=== PATIENT | male | born 1940 | race Caucasian/White ===

== ENCOUNTER 2017-01-29 02:34 | Emergency (ER) | payer MEDICARE ==
[~2017-01-29] VITALS: Ht 182.9 cm; Wt 80.0 kg
[~2017-01-29 02:34] MED LIST: ASPI81TA82 PO; AZIT250T43 PO; ENAL10TA7 PO; LANSO15 PO; LEVO.1 PO; METO50TA PO; PRED20 PO; SPIRCAP INH; ZOCO40TA PO
[2017-01-29 02:36] VITALS: BP 150/86; PULSE 92; RESP 28; TEMP 98.2; O2SAT 98
[2017-01-29] MEDS ORDERED: METO25TA3 PO (02:48)
[2017-01-29] MEDS ORDERED: ZOCO40TA PO (02:48)
[2017-01-29] MEDS ORDERED: PREV15CA15 PO (02:48)
[2017-01-29] MEDS ORDERED: ASPI81CH CHEW (02:48)
[2017-01-29] MEDS ORDERED: ENAL10TA7 (02:48)
[2017-01-29] MEDS ORDERED: LEVO.1 PO (02:48)
[2017-01-29 02:50] VITALS: O2SAT 98
--- NOTE | 2017-01-29 02:58 | PD ---
HPI Chief Complaint: Respiratory Distress Time Seen by Provider: 02:45 Travel History International Travel<30 days: No Contact w/Intl Traveler<30days: No Traveled to known affect area: No History of Present Illness HPI The patient is a 76 year old male who presents to the [facility] emergency department with a history of shortness of breath that became worse on Saturday. The patient reports that after the rain on Saturday morning he noticed he was developing increasing wheezing. The patient has a known history of COPD. The patient denies any recent smoking. The patient reports that he occasionally has a cough productive of white sputum. He denies having any increased productivity to his cough. He denies having any fevers or chills. He does report having a clear rhinorrhea. The patient reports that he awoke from sound sleep at 1:30 AM with wheezing that he could not really with an albuterol nebulizer treatment. Ambulance services were called. The patient was noted to be tachypneic with wheezing and an O2 saturation on room air of 86%. Prior to arrival, the patient was given Solu-Medrol 125 mg IV, albuterol nebulizer treatments 3. The patient on arrival reports feeling improved. He denies having any chest pain. He reports that he does have chest tightness with trying to take a deep breath. The patient denies having any known history of congestive heart failure, DVT, or PE. The patient denies having any new or worsening lower extremity edema. On review of systems, the patient denies any recent increased congestion, neck pain, abdominal pain, vomiting, diarrhea, urinary symptoms, or neurologic symptoms. [facility] Past Medical History Narrative Medical The patient's past medical history is significant for COPD, coronary artery disease status post myocardial infarction 2, history of hyperlipidemia, hypertension, arthritis, hypothyroid disorder Arthritis: Yes Asthma: No Autoimmune Disease: No Blood Disorders: No Heart Rhythm Problems: No Cancer: No Cardiac Catheterization: Yes Cardiovascular Problems: Yes High Cholesterol: Yes Chest Pain: Yes Congestive Heart Failure: No COPD: Yes Cerebrovascular Accident: No Diabetes: No Diminished Hearing: No GERD: No Glaucoma: No Genitourinary: No Headaches: No Hepatitis: No Hiatal Hernia: No Hypertension: Yes Kidney Stones: No Musculoskeletal: No Neurologic: No Psychiatric: No Reproductive: No Respiratory: Yes (copd ) Myocardial Infarction: Yes (X2) Renal Failure: No Seizures: No Sleep Apnea: No Thyroid Disease: Yes Ulcer: No Past Surgical History Narrative Surgical The patient's past surgical history is significant for cardiac catheterization with stent placement 4. Abdominal Surgery: No AICD: No Cardiac Surgery: No Coronary Artery Bypass Graft: No Coronary Stent: Yes (X4) Ear Surgery: No Endocrine Surgery: No Eye Surgery: No Genitourinary Surgery: No Gynecologic Surgery: No Oral Surgery: No Pacemaker: No Thoracic Surgery: No Social History Alcohol Use: No Tobacco Use: No Substance Use: No Allergies-Medications (Allergen,Severity, Reaction): Coded Allergies: Librium (Verified Allergy, Severe, 01/29/17) Penicillin (Verified Allergy, Severe, 01/29/17) Robaxin (Verified Allergy, Severe, 01/29/17) Reported Meds & Prescriptions Reported Meds & Active Scripts Active Reported Enalapril-Hydrochorothiazide (Enalapril-Hydrochlorothiazide) 10-25 Mg Tab Metoprolol Tartrate 25 Mg Tab 25 Mg PO BID Synthroid (Levothyroxine Sodium) 100 Mcg Tab 100 Mcg PO DAILY Prevacid (Lansoprazole) 15 Mg Capdr 15 Mg PO HS Aspirin 81 Mg Chew 81 Mg CHEW DAILY Review of Systems Except as stated in HPI: all other systems reviewed are Neg General / Constitutional: No: Fever Eyes: No: Visual changes HENT: No: Headaches Cardiovascular: Positive: Chest Pain or Discomfort (chest tightness), Dyspnea on exertion Respiratory: Positive: Cough, Shortness of Breath, Wheezing Gastrointestinal: No: Nausea, Vomiting, Diarrhea, Abdominal Pain Genitourinary: No: Dysuria Musculoskeletal: No: Pain Skin: No Rash Neurologic: No: Weakness Psychiatric: No: Depression Endocrine: No: Polydipsia Hematologic/Lymphatic: No: Easy Bruising Physical Exam Narrative General: The patient is a well-developed well-nourished male in no acute distress. Head and Neck exam: Head is normocephalic atraumatic. Eyes: EOMI, pupils are equal round and reactive to light. Nose: Midline septum with pink mucous membranes Mouth: Dentition unremarkable. Moist mucus membranes. Posterior oropharynx is not erythematous. No tonsillar hypertrophy. Uvula midline. Airway patent. Neck: No palpable lymphadenopathy. No nuchal rigidity. No thyromegaly. Cardiovascular: Regular rate and rhythm without murmurs, gallops, or rubs. No pulse deficit to the extremities on simultaneous auscultation and palpation of his radial artery. Lungs: Soft expiratory wheezes are audible in bilateral lung ellis, no rhonchi, no crackles. No conversational dyspnea. No tripoding. No accessory muscle use. No paroxysmal abdominal breathing. Abdomen: Soft, without tenderness to palpation in all 4 quadrants of the abdomen. No guarding, rebound, or rigidity. Normal bowel sounds are audible. No tenderness on palpation of McBurney's point. Extremities: No clubbing, cyanosis, or edema. 2+ pulses in all 4 extremities. Calf tenderness on palpation. Back: No costovertebral angle tenderness to palpation. Neurologic Exam: Grossly nonfocal. Skin Exam: No rash noted. Intact skin that is warm and dry. Data Data Last Documented VS Vital Signs Date Time Temp Pulse Resp B/P Pulse Ox O2 Delivery O2 Flow Rate FiO2 01/29/17 02:50 98 Nasal Cannula 3.00 01/29/17 02:41 22 01/29/17 02:36 98.2 92 150/86 Orders Complete Blood Count With Diff (01/29/17 02:46) Comprehensive Metabolic Panel (01/29/17 02:46) B-Type Natriuretic Peptide (01/29/17 02:46) Magnesium (Mg) (01/29/17 02:46) Iv Access Insert/Monitor (01/29/17 02:46) Electrocardiogram (01/29/17 02:46) Ecg Monitoring (01/29/17 02:46) Oximetry (01/29/17 02:46) Oxygen Administration (01/29/17 02:46) Chest, Single Ap (01/29/17 02:46) Sodium Chloride 0.9% Flush (Ns Flush) (01/29/17 03:00) Albuterol-Ipratropium Neb (Duoneb Neb) (01/29/17 03:00) Labs Laboratory Tests Test 01/29/17 02:45 White Blood Count 9.6 TH/MM3 Red Blood Count 4.91 MIL/MM3 Hemoglobin 14.9 GM/DL Hematocrit 42.6 % Mean Corpuscular Volume 86.7 FL Mean Corpuscular Hemoglobin 30.4 PG Mean Corpuscular Hemoglobin 35.0 % Concent Red Cell Distribution Width 13.0 % Platelet Count 226 TH/MM3 Mean Platelet Volume 8.3 FL Neutrophils (%) (Auto) 64.5 % Lymphocytes (%) (Auto) 17.0 % Monocytes (%) (Auto) 9.2 % Eosinophils (%) (Auto) 8.0 % Basophils (%) (Auto) 1.3 % Neutrophils # (Auto) 6.2 TH/MM3 Lymphocytes # (Auto) 1.6 TH/MM3 Monocytes # (Auto) 0.9 TH/MM3 Eosinophils # (Auto) 0.8 TH/MM3 Basophils # (Auto) 0.1 TH/MM3 CBC Comment DIFF FINAL Differential Comment Sodium Level 135 MEQ/L Potassium Level 4.3 MEQ/L Chloride Level 101 MEQ/L Carbon Dioxide Level 27.5 MEQ/L Anion Gap 7 MEQ/L Blood Urea Nitrogen 10 MG/DL Creatinine 1.04 MG/DL Estimat Glomerular Filtration 70 ML/MIN Rate Random Glucose 101 MG/DL Calcium Level 9.0 MG/DL Magnesium Level 2.1 MG/DL Total Bilirubin 0.7 MG/DL Aspartate Amino Transf 27 U/L (AST/SGOT) Alanine Aminotransferase 22 U/L (ALT/SGPT) Alkaline Phosphatase 73 U/L B-Type Natriuretic Peptide 58 PG/ML Total Protein 7.0 GM/DL Albumin 3.5 GM/DL MDM Medical Decision Making Medical Screen Exam Complete: Yes Emergency Medical Condition: Yes Medical Record Reviewed: Yes Interpretation(s) Last Impressions Chest X-Ray 01/29/17 0246 Signed Impressions: Service Date/Time: Sunday, January 29, 2017 02:57 - CONCLUSION: No acute disease. Burt Aguilar MD Differential Diagnosis COPD exacerbation, versus pneumonia, versus new-onset congestive heart failure, versus pneumothorax. Narrative Course During the course of the patients emergency department visit, the patients history, examination, and differential diagnosis were reviewed with the patient. The patient had IV access obtained and blood work sent for analysis. The patient was placed on a custom marine canvas fabricator with oximetry and blood pressure monitoring. An EKG was done on arrival. The patient's EKG shows a sinus tachycardia rate of 102, no acute ST segment elevation or depression, T waves are inverted in V1. QRS duration is 90 ms, QTC 403 ms. The patient was initially provided a DuoNeb 1. The patients laboratory studies were reviewed and remarkable for a white count of 9.6, hemoglobin 14.9, platelets 226 with 9.2 monocytes, eosinophils 8, CMP is remarkable for sodium of 135, GFR 70, BNP is 58. Radiology studies were reviewed and remarkable for a chest x-ray that shows no acute abnormality. The patient on reexamination has had resolution of his wheezing. The patient's O2 saturation on room air is 96%. The patient will be discharged home. The patient is resting comfortably and feels better, is alert and in no distress. The patients results and examination findings were discussed with the patient. The repeat examination is unremarkable and benign. The history, exam, diagnostic testing, and current condition do not suggest any significant pathology to warrant further testing, continued ED treatment, admission, or surgical evaluation at this point. The vital signs have been stable. The patient does not have uncontrollable pain, intractable vomiting, or other significant symptoms. The patient's condition is stable and appropriate for discharge. The patient will pursue further outpatient evaluation with a primary care physician or other designated or consulting physician as indicated in the discharge instructions. The patient expressed understanding and was agreeable with this plan. Diagnosis Primary Impression: COPD exacerbation Additional Impression: Bronchitis Referrals: Primary Care Physician 2 days Patient Instructions: COPD (Chronic Obstructive Pulmonary Disease) (ED), General Instructions Med/Other Pt SpecificInfo: Prescription(s) given Scripts Doxycycline Hyclate 100 Mg [id number] Mg PO BID #20 CAP Ref 0 Prov:Kathya Souza MD 01/29/17 Ipratropium-Albuterol Neb (Duoneb)0.5-2.5 Mg/3 Ml Neb1 Nebule INH Q6HR NEB PRN ( WHEEZING) #1 BOX Ref 0 Prov:Kathya Souza MD 01/29/17 Methylprednisolone Dosepak (Medrol Dosepak)4 Mg Dspk4 Mg PO DIRECTED #1 DSPK Ref 0 Per Pharmacist direction Prov:Kathya Souza MD 01/29/17 Disposition: 01 DISCHARGE HOME Condition: Stable Kathya Souza MD January 29, 2017 02:58
[2017-01-29] MEDS ORDERED: RESP: ALBUTEROL 2.5 MG/IPRATROPIUM 0.5 MG NEB (SCH) INH ONE (03:00)
[2017-01-29] MEDS ORDERED: SODIUM CHLORIDE 0.9% FLUSH 10 ML FLUSH IVF PRN (03:00)
[2017-01-29 03:07] LABS: AUTOMATED NEUTROPHIL # 6.2 TH/MM3 (1.8-7.7); BASOPHIL # 0.1 TH/MM3 (0-0.2); BASOPHIL % 1.3 % (0.0-2.0); EOSINOPHIL # 0.8 TH/MM3 (0-0.4); HEMATOCRIT 42.6 % (39.0-51.0); HEMO FLAGS DIFF FINAL; LYMPHOCYTE # 1.6 TH/MM3 (1.0-4.8); MEAN CELL VOLUME 86.7 FL (80.0-100.0); MEAN CORPUSCULAR HEMOGLOBIN 30.4 PG (27.0-34.0); MONO % 9.2 % (0.0-8.0); NEUT % 64.5 % (16.0-70.0); PLATELET COUNT 226 TH/MM3 (150-450); RED BLOOD COUNT 4.91 MIL/MM3 (4.50-5.90); WHITE BLOOD COUNT 9.6 TH/MM3 (4.0-11.0)
--- NOTE | 2017-01-29 03:09 | RADRPT ---
EXAM DATE/TIME: 01/29/2017 02:57 [facility] COMPARISON: CHEST SINGLE AP, February 16, 2015, 0:40. INDICATIONS : Shortness of breath. MEDICAL HISTORY : Chronic obstructive pulmonary disease. Myocardial infarction. SURGICAL HISTORY : Coronary artery stent. Cardiac catheterization. ENCOUNTER: Initial ACUITY: 1 day PAIN SCORE: 0/10 LOCATION: Bilateral chest FINDINGS: A single view of the chest demonstrates the lungs to be symmetrically hyperinflated without evidence of mass, infiltrate or effusion. The cardiomediastinal contours are unremarkable. Osseous structure s are intact. CONCLUSION: No acute disease. Burt Aguilar MD on January 29, 2017 at 3:07 Board Certified Radiologist. This report was verified electronically.
[2017-01-29 03:32] LABS: ALKALINE PHOSPHATASE 73 U/L (45-117); TOTAL BILIRUBIN ADULT 0.7 MG/DL (0.2-1.0)
[2017-01-29 03:36] LABS: ALT (GPT) 22 U/L (12-78); ANION GAP 7 MEQ/L (5-15); AST (GOT) 27 U/L (15-37); BICARBONATE 27.5 MEQ/L (21.0-32.0); BLOOD UREA NITROGEN 10 MG/DL (7-18); CHLORIDE 101 MEQ/L (98-107); GLOMERULAR FILTRATION RATE 70 ML/MIN (>89); MAGNESIUM 2.1 MG/DL (1.5-2.5); SODIUM (NA) 135 MEQ/L (136-145)
[2017-01-29 03:37] LABS: POTASSIUM 4.3 MEQ/L (3.5-5.1)
[2017-01-29] MEDS ORDERED: DOXY100C PO (04:05)
[2017-01-29] MEDS ORDERED: MEDR4PAK PO (04:05)
[2017-01-29] MEDS ORDERED: IPRASOL INH (04:05)
[2017-01-29 04:11] VITALS: O2SAT 95
--- NOTE | 2017-01-29 15:55 | EKG ---
Date Performed: 01/29/2017 Time Performed: 02:39:19 PTAGE: 76 years EKG: SINUS TACHYCARDIA POSSIBLE LEFT ATRIAL ENLARGEMENT ABNORMAL RHYTHM ECG Compared to the PREVIOUS TRACING sinus rate has increased PREVIOUS TRACIN02/16/2015 00.14 DOCTOR: Fer Alejandro Interpretating Date/Time 01/29/2017 15:54:02
== END 2017-01-29 04:53 | disposition home or self-care (01) ==
LOC: NEPE 02:34
DX: J44.1 Chronic obstructive pulmonary disease with (acute) exacerbation (principal); R94.31 Abnormal electrocardiogram [ECG] [EKG]; I25.10 Atherosclerotic heart disease of native coronary artery without angina pectoris; I10 Essential (primary) hypertension; I25.2 Old myocardial infarction; Z95.5 Presence of coronary angioplasty implant and graft; J40 Bronchitis, not specified as acute or chronic
CPT/HCPCS: 71010; 80053; 83735; 83880; 85025; 93005; 94664

== ENCOUNTER 2017-09-26 06:34 | Emergency (ER) | payer MEDICARE ==
[~2017-09-26] VITALS: Ht 177.8 cm; Wt 80.0 kg
[~2017-09-26 06:34] MED LIST changes: +ASPI-516 CHEW; -ASPI81TA82 PO; -AZIT250T43 PO; +DOXY100C PO; +ENAL10TA7; -ENAL10TA7 PO; +IPRASOL INH; -LANSO15 PO; +MEDR4PAK PO; +METO25TA3 PO; -METO50TA PO; -PRED20 PO; +PREV15CA20 PO; -SPIRCAP INH; -ZOCO40TA PO
[2017-09-26 06:39] VITALS: BP 139/69; PULSE 84; RESP 24; TEMP 98.4; O2SAT 100
[2017-09-26] MEDS ORDERED: SODIUM CHLORIDE 0.9% FLUSH 10 ML FLUSH IVF PRN (06:45)
[2017-09-26 06:46] VITALS: RESP 22
[2017-09-26] MEDS: RESP: ALBUTEROL 2.5 MG/IPRATROPIUM 0.5 MG NEB (SCH) INH (06:46)
[2017-09-26 06:55] VITALS: BP 119/65; PULSE 86; RESP 20; TEMP 98; O2SAT 96
--- NOTE | 2017-09-26 06:56 | PD ---
HPI . Acute respiratory distress Chief Complaint: Respiratory Distress Time Seen by Provider: 06:39 Travel History International Travel<30 days: No Contact w/Intl Traveler<30days: No Traveled to known affect area: No History of Present Illness HPI 77-year-old male with extensive past medical history presents via EMS called secondary to acute shortness of breath this morning. Patient received 2 albuterol Atrovent nebulized treatments en route & Medrol 125 mg IV push. Patient has had a significant cough that is nonproductive, however patient states he is having difficulty expectorating sputum. Patient denies any chest pain, or quantified fever. Patient is having difficulty with further history secondary to respiratory distress PFSH Past Medical History Narrative Medical Past medical history reviewed Arthritis: Yes Asthma: No Autoimmune Disease: No Blood Disorders: No Heart Rhythm Problems: No Cancer: No Cardiac Catheterization: Yes Cardiovascular Problems: Yes High Cholesterol: Yes Chest Pain: Yes Congestive Heart Failure: No COPD: Yes Cerebrovascular Accident: No Diabetes: No Diminished Hearing: No GERD: No Glaucoma: No Genitourinary: No Headaches: No Hepatitis: No Hiatal Hernia: No Hypertension: Yes Kidney Stones: No Musculoskeletal: No Neurologic: No Psychiatric: No Reproductive: No Respiratory: Yes Immunizations Current: Yes Myocardial Infarction: Yes (X2) Renal Failure: No Seizures: No Sleep Apnea: No Thyroid Disease: Yes Ulcer: No Tetanus Vaccination: < 5 Years Influenza Vaccination: Yes Past Surgical History Abdominal Surgery: No AICD: No Cardiac Surgery: No Coronary Artery Bypass Graft: No Coronary Stent: Yes (X4) Ear Surgery: No Endocrine Surgery: No Eye Surgery: No Genitourinary Surgery: No Gynecologic Surgery: No Oral Surgery: No Pacemaker: No Thoracic Surgery: No Social History Alcohol Use: No Tobacco Use: No Substance Use: No Allergies-Medications (Allergen,Severity, Reaction): Coded Allergies: chlordiazepoxide (Unverified Allergy, Severe, 09/26/17) methocarbamol (Unverified Allergy, Severe, 09/26/17) penicillin G (Unverified Allergy, Severe, 09/26/17) Reported Meds & Prescriptions Reported Meds & Active Scripts Active Duoneb (Ipratropium-Albuterol Neb) 0.5-2.5 Mg/3 Ml Neb 1 Nebule INH Q6HR NEB PRN Reported Enalapril-Hydrochorothiazide (Enalapril-Hydrochlorothiazide) 10-25 Mg Tab Metoprolol Tartrate 25 Mg Tab 25 Mg PO BID Synthroid (Levothyroxine Sodium) 100 Mcg Tab 100 Mcg PO DAILY Prevacid (Lansoprazole) 15 Mg Capdr 15 Mg PO HS Aspirin 81 Mg Chew 81 Mg CHEW DAILY Narrative Medication Allergies and medications reviewed Review of Systems Except as stated in HPI: all other systems reviewed are Neg General / Constitutional: No: Fever Eyes: No: Visual changes HENT: No: Headaches Cardiovascular: No: Chest Pain or Discomfort Respiratory: Positive: Cough, Shortness of Breath, Wheezing, No: Sneezing, Orthopnea, Hemoptysis, Stridor, Night Sweats, Pleuritic Pain Gastrointestinal: No: Abdominal Pain Genitourinary: No: Dysuria Musculoskeletal: No: Pain Skin: No Rash Neurologic: No: Weakness Psychiatric: No: Depression Endocrine: No: Polydipsia Hematologic/Lymphatic: No: Easy Bruising Physical Exam Narrative GENERAL: Awake and alert, in moderate respiratory distress SKIN: Warm and dry. Slightly sallow no diaphoresis cyanosis or pallor HEAD: Atraumatic. Normocephalic. EYES: Pupils equal and round. No scleral icterus. No injection or drainage. ENT: No nasal bleeding or discharge. Mucous membranes pink and moist. NECK: Trachea midline. No JVD. Supple full range of motion no stridor CARDIOVASCULAR: Regular rate and rhythm. S1-S2 no murmurs rubs gallops RESPIRATORY: Very poor air entry, prolonged respiratory phase equal bilateral. Rhonchi audible with forced exhalation/cough only. GASTROINTESTINAL: Abdomen soft, non-tender, nondistended. Hepatic and splenic margins not palpable. MUSCULOSKELETAL: Extremities without clubbing, cyanosis, or edema. No obvious deformities. NEUROLOGICAL: Awake and alert. No obvious cranial nerve deficits. Motor grossly within normal limits. Five out of 5 muscle strength in the arms and legs. Normal speech. PSYCHIATRIC: Appropriate mood and affect; insight and judgment normal. Data Data Last Documented VS Vital Signs Date Time Temp Pulse Resp B/P (MAP) Pulse Ox O2 Delivery O2 Flow Rate FiO2 09/26/17 06:46 22 09/26/17 06:45 98 Nasal Cannula 4.00 09/26/17 06:39 98.4 84 139/69 (92) Orders Orders Complete Blood Count With Diff (09/26/17 06:39) Comprehensive Metabolic Panel (09/26/17 06:39) B-Type Natriuretic Peptide (09/26/17 06:39) D-Dimer (09/26/17 06:39) Act Partial Throm Time (Ptt) (09/26/17 06:39) Prothrombin Time / Inr (Pt) (09/26/17 06:39) Magnesium (Mg) (09/26/17 06:39) Ckmb (Isoenzyme) Profile (09/26/17 06:39) Troponin I (09/26/17 06:39) Urinalysis - C+S If Indicated (09/26/17 06:39) Influenzae A/B Antigen (09/26/17 06:39) Iv Access Insert/Monitor (09/26/17 06:39) Electrocardiogram (09/26/17 06:39) Ecg Monitoring (09/26/17 06:39) Oximetry (09/26/17 06:39) Oxygen Administration (09/26/17 06:39) Chest, Single Ap (09/26/17 06:39) Sodium Chloride 0.9% Flush (Ns Flush) (09/26/17 06:45) Albuterol-Ipratropium Neb (Duoneb Neb) (09/26/17 06:45) MDM Medical Decision Making Medical Screen Exam Complete: Yes Emergency Medical Condition: Yes Medical Record Reviewed: Yes Differential Diagnosis COPD exacerbation, acute bronchitis, pneumonia Narrative Course All laboratory examinations, chest x-ray, EKG pending. Patient signed out to oncoming ED attending. Patient currently being administered his first DuoNeb treatment in the ED. Diagnosis Primary Impression: COPD exacerbation Additional Impression: Bronchitis Chano Mtz MD Sep 26, 2017 06:56
[2017-09-26 07:03] LABS: AUTOMATED NEUTROPHIL # 5.4 TH/MM3 (1.8-7.7); BASOPHIL # 0.1 TH/MM3 (0-0.2); BASOPHIL % 1.4 % (0.0-2.0); EOSINOPHIL # 0.6 TH/MM3 (0-0.4); EOSINOPHIL % 7.1 % (0.0-4.0); HEMATOCRIT 40.7 % (39.0-51.0); HEMOGLOBIN 14.5 GM/DL (13.0-17.0); LYMPH % 18.1 % (9.0-44.0); LYMPHOCYTE # 1.5 TH/MM3 (1.0-4.8); MEAN CORPUSCULAR HEMOGLOBIN 30.9 PG (27.0-34.0); MEAN CORPUSCULAR HGB CONC 35.6 % (32.0-36.0); MEAN PLATELET VOLUME 8.9 FL (7.0-11.0); MONO % 7.9 % (0.0-8.0); MONOCYTE # 0.6 TH/MM3 (0-0.9); NEUT % 65.5 % (16.0-70.0); PLATELET COUNT 253 TH/MM3 (150-450); RED BLOOD COUNT 4.68 MIL/MM3 (4.50-5.90); RED CELL DISTRIBUTION WIDTH 13.2 % (11.6-17.2); WHITE BLOOD COUNT 8.2 TH/MM3 (4.0-11.0)
--- NOTE | 2017-09-26 07:08 | RADRPT ---
EXAM DATE/TIME: 09/26/2017 06:45 [facility] COMPARISON: CHEST SINGLE AP, January 29, 2017, 2:57. INDICATIONS : Shortness of breath for one day MEDICAL HISTORY : Chronic obstructive pulmonary disease. Myocardial infarction. SURGICAL HISTORY : Coronary artery stent. Cardiac catheterization. ENCOUNTER: Initial ACUITY: 1 day PAIN SCORE: 0/10 LOCATION: Bilateral chest FINDINGS: Portable AP view of the chest demonstrates a normal-sized cardiac silhouette. Lungs are hyperexpanded . There are linear opacities at the left lung base. No pleural effusion, airspace consolidation, or p neumothorax is visualized. The bones and soft tissues demonstrate no acute finding. CONCLUSION: 1. No acute cardiopulmonary abnormality is identified. 2. Background lung changes are suggestive of obstructive airways disease. There is stable linear scar at the left lung base. Macario Bauer MD on September 26, 2017 at 7:06 Board Certified Radiologist. This report was verified electronically.
[2017-09-26 08:09] LABS: ALBUMIN 3.2 GM/DL (3.4-5.0); ALT (GPT) 19 U/L (12-78); AST (GOT) 20 U/L (15-37); BICARBONATE 27.2 MEQ/L (21.0-32.0); BLOOD UREA NITROGEN 13 MG/DL (7-18); CALCIUM 8.3 MG/DL (8.5-10.1); CHLORIDE 100 MEQ/L (98-107); CREATININE 0.95 MG/DL (0.60-1.30); GLOMERULAR FILTRATION RATE 77 ML/MIN (>89); GLUCOSE,RANDOM 117 MG/DL (74-106); MAGNESIUM 2.2 MG/DL (1.5-2.5); SODIUM (NA) 134 MEQ/L (136-145)
[2017-09-26 08:12] LABS: ALKALINE PHOSPHATASE 74 U/L (45-117); TOTAL BILIRUBIN ADULT 0.7 MG/DL (0.2-1.0); TOTAL PROTEIN 7.1 GM/DL (6.4-8.2); TROPONIN I 0.09 NG/ML (0.02-0.05)
[2017-09-26] MEDS ORDERED: PRED20 PO (08:57)
--- NOTE | 2017-09-26 09:03 | PD ---
Data Data Last Documented VS Vital Signs Date Time Temp Pulse Resp B/P (MAP) Pulse Ox O2 Delivery O2 Flow Rate FiO2 09/26/17 06:55 98.0 86 20 119/65 (83) 96 Nasal Cannula 4.00 Orders Orders Complete Blood Count With Diff (09/26/17 06:39) Comprehensive Metabolic Panel (09/26/17 06:39) B-Type Natriuretic Peptide (09/26/17 06:39) D-Dimer (09/26/17 06:39) Act Partial Throm Time (Ptt) (09/26/17 06:39) Prothrombin Time / Inr (Pt) (09/26/17 06:39) Magnesium (Mg) (09/26/17 06:39) Ckmb (Isoenzyme) Profile (09/26/17 06:39) Troponin I (09/26/17 06:39) Influenzae A/B Antigen (09/26/17 06:39) Iv Access Insert/Monitor (09/26/17 06:39) Electrocardiogram (09/26/17 06:39) Ecg Monitoring (09/26/17 06:39) Oximetry (09/26/17 06:39) Oxygen Administration (09/26/17 06:39) Chest, Single Ap (09/26/17 06:39) Sodium Chloride 0.9% Flush (Ns Flush) (09/26/17 06:45) Albuterol-Ipratropium Neb (Duoneb Neb) (09/26/17 06:45) CKMB (09/26/17 07:30) CKMB% (09/26/17 07:30) Labs Laboratory Tests Test 09/26/17 06:45 09/26/17 07:30 White Blood Count 8.2 TH/MM3 Red Blood Count 4.68 MIL/MM3 Hemoglobin 14.5 GM/DL Hematocrit 40.7 % Mean Corpuscular Volume 87.0 FL Mean Corpuscular Hemoglobin 30.9 PG Mean Corpuscular Hemoglobin Concent 35.6 % Red Cell Distribution Width 13.2 % Platelet Count 253 TH/MM3 Mean Platelet Volume 8.9 FL Neutrophils (%) (Auto) 65.5 % Lymphocytes (%) (Auto) 18.1 % Monocytes (%) (Auto) 7.9 % Eosinophils (%) (Auto) 7.1 % Basophils (%) (Auto) 1.4 % Neutrophils # (Auto) 5.4 TH/MM3 Lymphocytes # (Auto) 1.5 TH/MM3 Monocytes # (Auto) 0.6 TH/MM3 Eosinophils # (Auto) 0.6 TH/MM3 Basophils # (Auto) 0.1 TH/MM3 CBC Comment DIFF FINAL Differential Comment B-Type Natriuretic Peptide 36 PG/ML Blood Urea Nitrogen 13 MG/DL Creatinine 0.95 MG/DL Random Glucose 117 MG/DL Total Protein 7.1 GM/DL Albumin 3.2 GM/DL Calcium Level 8.3 MG/DL Magnesium Level 2.2 MG/DL Alkaline Phosphatase 74 U/L Aspartate Amino Transf (AST/SGOT) 20 U/L Alanine Aminotransferase (ALT/SGPT) 19 U/L Total Bilirubin 0.7 MG/DL Sodium Level 134 MEQ/L Potassium Level 4.4 MEQ/L Chloride Level 100 MEQ/L Carbon Dioxide Level 27.2 MEQ/L Anion Gap 7 MEQ/L Estimat Glomerular Filtration Rate 77 ML/MIN Total Creatine Kinase 161 U/L Creatine Kinase MB 3.9 NG/ML Troponin I 0.09 NG/ML [facility] Supervised Visit with STEVEN: No Narrative Course This case is checked out to me by Dr. Benita Saenz at 7 AM. I reviewed the entirety of the workup. I reevaluated the patient. At this point he has some diminished breath sounds but no active wheezing. He feels much much better. Saturations are 99% on room air His chest x-ray is negative for consolidation or pneumothorax I reviewed his labs which are fairly nonspecific With troponin I of 0.09 does not represent ACS. He has not had any chest pain. I have no Clinical suspicion of PE. I've canceled the d-dimer. I don't feel it is indicated. I wrote him 5 days of prednisone He has a nebulizer to use at home Diagnosis Primary Impression: COPD exacerbation Additional Impression: Bronchitis Additional Instruction: The patient was advised to follow up with their physician and return if they worsen. Med/Other Pt SpecificInfo: Prescription(s) given Scripts Prednisone (Prednisone) 20 Mg Tab 40 MG PO DAILY, #10 TAB 0 Refills Take 40 mg (2 tablets) daily for 5 days Prov: Jaden Matias MD 09/26/17 Disposition: DISCHARGE HOME Condition: Stable Jaden Matias MD Sep 26, 2017 09:03
[2017-09-26 09:24] VITALS: BP 129/71; PULSE 80; RESP 16; O2SAT 96
--- NOTE | 2017-09-26 20:26 | EKG ---
Date Performed: 09/26/2017 Time Performed: 06:59:07 PTAGE: 77 years EKG: Sinus rhythm NORMAL ECG NO SIGNIFICANT CHANGE SINCE PRIOR TRACING PREVIOUS TRACING : 01/29/2017 02.39 DOCTOR: Emerita Payan Interpretating Date/Time 09/26/2017 20:26:06
== END 2017-09-26 09:26 | disposition home or self-care (01) ==
LOC: NEPC 06:34
DX: J44.1 Chronic obstructive pulmonary disease with (acute) exacerbation (principal); E78.00 Pure hypercholesterolemia, unspecified; I10 Essential (primary) hypertension; I25.2 Old myocardial infarction; E07.9 Disorder of thyroid, unspecified; M19.90 Unspecified osteoarthritis, unspecified site; Z95.5 Presence of coronary angioplasty implant and graft
CPT/HCPCS: 71045; 80053; 82550; 82552; 83735; 83880; 84484; 85025; 87804; 93005; 94640; 94664; 99285

== ENCOUNTER 2018-02-23 13:56 | Observation (INO) | payer MEDICARE ==
[2018-02-23] VITALS (9 sets, daily range): BP systolic 122–168; BP diastolic 66–85; PULSE 72–109; RESP 17–20; TEMP 97.5–98.7; O2SAT 96–99
[~2018-02-23] VITALS: Ht 180.3 cm; Wt 67.0 kg
[~2018-02-23 13:56] MED LIST changes: -DOXY100C PO; -MEDR4PAK PO; +PRED20 PO
[2018-02-23] MEDS ORDERED: SODIUM CHLORIDE 0.9% FLUSH 10 ML FLUSH IVF PRN (14:15)
[2018-02-23] MEDS: RESP: ALBUTEROL 2.5 MG/IPRATROPIUM 0.5 MG NEB (SCH) INH ×4 (14:28→23:17)
--- NOTE | 2018-02-23 14:32 | RADRPT ---
EXAM DATE: 02/23/2018 2:26 PM EDT AGE/SEX: 77 years / Male INDICATIONS: Short of breath, wheezing CLINICAL DATA: This is the patient's initial encounter. Patient reports that signs and symptoms have been present for 1 month and indicates a pain score of 0/10. MEDICAL/SURGICAL HISTORY: Cardiovascular disease. Coronary artery stent. COMPARISON: [facility], CHEST SINGLE AP, 09/26/2017. . FINDINGS: A single AP view of the chest demonstrates the lungs to be symmetrically aerated without evidence of mass, infiltrate or effusion. The cardiomediastinal contours are unremarkable. Osseous structures a re intact. CONCLUSION: No active disease. Mild hyperinflation. Electronically signed by: Ministerio Dobbs MD 02/23/2018 2:31 PM EDT
--- NOTE | 2018-02-23 14:54 | PD ---
HPI Chief Complaint: Respiratory Distress Time Seen by Provider: 14:00 Travel History International Travel<30 days: No Contact w/Intl Traveler<30days: No Traveled to known affect area: No History of Present Illness HPI 77-year-old male the presents to the ED for evaluation of shortness of breath. Patient has a history of COPD and has been here for exacerbations in the past. Per patient his symptoms have been ongoing for about a month now. He came by ambulance for evaluation of this. Per patient he does not use oxygen at home has been using his inhalers. Per patient he supposed to be in a chronic indication for his COPD called Symbicort but he has not had it yet. He has not seen his doctor for this. Per patient every time he complains of shortness of breath a tell him that is related to his COPD. He does have a history of ACS. He was given Solu-Medrol and DuoNeb on the way here with some improvement but minimal per patient. Per patient he is ambulating from small distances he gets severely short of breath. Per patient this is not unusual for him. He does not smoke for 7 years. He follows with a food equipment service technician through the [facility]. He denies any chest pain currently but states that he does get chest pain whenever he gets the shortness of breath. He states that he takes blood thinners. Denies any injury or trauma. No recent travel. PFSH Past Medical History Hx Anticoagulant Therapy: Yes Arthritis: Yes Asthma: No Autoimmune Disease: No Blood Disorders: No Heart Rhythm Problems: No Cancer: No Cardiac Catheterization: Yes Cardiovascular Problems: Yes (OH X 2) High Cholesterol: Yes Chest Pain: Yes Congestive Heart Failure: No COPD: Yes Cerebrovascular Accident: No Diabetes: No Diminished Hearing: No GERD: No Glaucoma: No Genitourinary: No Headaches: No Hepatitis: No Hiatal Hernia: No Hypertension: Yes Kidney Stones: No Musculoskeletal: No Neurologic: No Psychiatric: No Reproductive: No Respiratory: Yes (COPD) Immunizations Current: Yes Myocardial Infarction: Yes (X2) Renal Failure: No Seizures: No Sleep Apnea: No Thyroid Disease: Yes Ulcer: No Tetanus Vaccination: < 5 Years Influenza Vaccination: Yes ?: Not Past Surgical History Abdominal Surgery: No AICD: No Cardiac Surgery: No Coronary Artery Bypass Graft: No Coronary Stent: Yes (X4) Ear Surgery: No Endocrine Surgery: No Eye Surgery: No Genitourinary Surgery: No Gynecologic Surgery: No Oral Surgery: No Pacemaker: No Thoracic Surgery: No Social History Alcohol Use: No Tobacco Use: No Substance Use: No Allergies-Medications (Allergen,Severity, Reaction): Coded Allergies: chlordiazepoxide (Unverified Allergy, Severe, 09/26/17) methocarbamol (Unverified Allergy, Severe, 09/26/17) penicillin G (Unverified Allergy, Severe, 09/26/17) Reported Meds & Prescriptions Reported Meds & Active Scripts Active Prednisone 20 Mg Tab 40 Mg PO DAILY Take 40 mg (2 tablets) daily for 5 days Duoneb (Ipratropium-Albuterol Neb) 0.5-2.5 Mg/3 Ml Neb 1 Nebule INH Q6HR NEB PRN Reported Enalapril-Hydrochorothiazide (Enalapril-Hydrochlorothiazide) 10-25 Mg Tab Metoprolol Tartrate 25 Mg Tab 25 Mg PO BID Synthroid (Levothyroxine Sodium) 100 Mcg Tab 100 Mcg PO DAILY Prevacid (Lansoprazole) 15 Mg Capdr 15 Mg PO HS Aspirin 81 Mg Chew 81 Mg CHEW DAILY Review of Systems Except as stated in HPI: all other systems reviewed are Neg Physical Exam Narrative GENERAL: Well-nourished, well-developed patient in no apparent distress. SKIN: Warm and dry. HEAD: Atraumatic. Normocephalic. EYES: Pupils equal and round reactive to light and accommodation. No scleral icterus. No injection or drainage. ENT: No nasal bleeding or discharge. Mucous membranes pink and moist. TMs are clear with no sign of infection or perforation. No mastoid tenderness. Ear canals are intact bilaterally. No lymphadenopathy. Nostril mucosa is red and moist with clear mucus noted. No sinus tenderness to palpation noted. Tonsils are not enlarged or swollen. No ulvua Deviation. Tongue is midline. NECK: Trachea midline. No JVD. No meningeal signs noted CARDIOVASCULAR: Regular rate and rhythm. RESPIRATORY: No accessory muscle use. Wheezing heard in all lung ellis. Breath sounds equal bilaterally. GASTROINTESTINAL: Abdomen soft, non-tender, nondistended. Hepatic and splenic margins not palpable. MUSCULOSKELETAL: Extremities without clubbing, cyanosis, or edema. No obvious deformities. Full range of motion of the upper and lower extremities bilaterally. 2+ pulses bilaterally. NEUROLOGICAL: Awake and alert. No obvious cranial nerve deficits. Motor grossly within normal limits. Five out of 5 muscle strength in the arms and legs. Normal speech. PSYCHIATRIC: Appropriate mood and affect; insight and judgment normal. Data Data Last Documented VS Vital Signs Date Time Temp Pulse Resp B/P (MAP) Pulse Ox O2 Delivery O2 Flow Rate FiO2 02/23/18 14:40 98 Nasal Cannula 2.00 02/23/18 14:10 97.5 88 20 Orders Orders Electrocardiogram (02/23/18 14:15) Arterial Blood Gas (Abg) (02/23/18 14:15) Complete Blood Count With Diff (02/23/18 14:15) Comprehensive Metabolic Panel (02/23/18 14:15) Chest, Single Ap (02/23/18 14:15) Ecg Monitoring (02/23/18 14:15) Iv Access Insert/Monitor (02/23/18 14:15) Oximetry (02/23/18 14:15) Oxygen Administration (02/23/18 14:15) Albuterol-Ipratropium Neb (Duoneb Neb) (02/23/18 14:15) Sodium Chloride 0.9% Flush (Ns Flush) (02/23/18 14:15) Ckmb (Isoenzyme) Profile (02/23/18 14:15) Troponin I (02/23/18 14:15) B-Type Natriuretic Peptide (02/23/18 14:15) Prothrombin Time / Inr (Pt) (02/23/18 14:15) Act Partial Throm Time (Ptt) (02/23/18 14:15) Magnesium (Mg) (02/23/18 14:15) Thyroid Stimulating Hormone (02/23/18 14:15) Diet Regular Basic (02/23/18 Dinner) Admit Order (Ed Use Only) (02/23/18 16:29) Labs Laboratory Tests Test 02/23/18 14:25 02/23/18 14:47 White Blood Count 9.0 TH/MM3 Red Blood Count 5.14 MIL/MM3 Hemoglobin 15.7 GM/DL Hematocrit 45.9 % Mean Corpuscular Volume 89.3 FL Mean Corpuscular Hemoglobin 30.5 PG Mean Corpuscular Hemoglobin Concent 34.2 % Red Cell Distribution Width 13.1 % Platelet Count 251 TH/MM3 Mean Platelet Volume 8.5 FL Neutrophils (%) (Auto) 59.0 % Lymphocytes (%) (Auto) 19.7 % Monocytes (%) (Auto) 9.5 % Eosinophils (%) (Auto) 10.7 % Basophils (%) (Auto) 1.1 % Neutrophils # (Auto) 5.3 TH/MM3 Lymphocytes # (Auto) 1.8 TH/MM3 Monocytes # (Auto) 0.9 TH/MM3 Eosinophils # (Auto) 1.0 TH/MM3 Basophils # (Auto) 0.1 TH/MM3 CBC Comment DIFF FINAL Differential Comment Prothrombin Time 10.6 SEC Prothromb Time International Ratio 1.0 RATIO Activated Partial Thromboplast Time 27.0 SEC Blood Urea Nitrogen 8 MG/DL Creatinine 0.94 MG/DL Random Glucose 100 MG/DL Total Protein 7.5 GM/DL Albumin 3.5 GM/DL Calcium Level 8.1 MG/DL Magnesium Level 2.1 MG/DL Alkaline Phosphatase 72 U/L Aspartate Amino Transf (AST/SGOT) 15 U/L Alanine Aminotransferase (ALT/SGPT) 18 U/L Total Bilirubin 1.0 MG/DL Sodium Level 132 MEQ/L Potassium Level 4.3 MEQ/L Chloride Level 96 MEQ/L Carbon Dioxide Level 25.0 MEQ/L Anion Gap 11 MEQ/L Estimat Glomerular Filtration Rate 78 ML/MIN Total Creatine Kinase 82 U/L Troponin I LESS THAN 0.02 NG/ML B-Type Natriuretic Peptide 36 PG/ML Thyroid Stimulating Hormone 3rd Gen 2.250 uIU/ML Blood Gas Puncture Site RT RADIAL Blood Gas Patient Temperature 98.6 Blood Gas HCO3 23 mmol/L Blood Gas Base Excess -0.9 mmol/L Blood Gas Oxygen Saturation 94 % Arterial Blood pH 7.43 Arterial Blood Partial Pressure CO2 35 mmHg Arterial Blood Partial Pressure O2 74 mmHG Arterial Blood Oxygen Content 20.2 Vol % Arterial Blood Carboxyhemoglobin 1.2 % Arterial Blood Methemoglobin 0.7 % Blood Gas Hemoglobin 15.3 G/DL Blood Gas Inspired Oxygen 21 % [facility] Medical Decision Making Medical Screen Exam Complete: Yes Emergency Medical Condition: Yes Medical Record Reviewed: Yes Interpretation(s) Last Impressions Chest X-Ray 02/23/18 1415 Signed Impressions: CONCLUSION: No active disease. Mild hyperinflation. CBC & BMP Diagram 02/23/18 14:25 Total Protein 7.5, Albumin 3.5, Calcium Level 8.1 L, Magnesium Level 2.1, Alkaline Phosphatase 72, Aspartate Amino Transf (AST/SGOT) 15, Alanine Aminotransferase (ALT/SGPT) 18, Total Bilirubin 1.0 EKG shows sinus rhythm with no sign of acute ischemia or arrhythmia read by me and attending. Troponin and CK-MB negative. Differential Diagnosis Bronchitis versus pneumonia versus COPD exacerbation versus CAD versus CHF Narrative Course 77-year-old male that presents to the ED for evaluation of shortness of breath with exertion. Patient was properly examined and was found to have signs and symptoms consistent with appears to be COPD exacerbation. Labs and imaging order. Patient was given duonebs and we will reasses. Labs and imaging were essentially unremarkable for acute disease. Patient was reassessed and does feel somewhat improved but his lungs still sound very wheezy. Patient does get symptomatic with just going to the bathroom. At this time I do recommend admission for COPD exacerbation and further treatment. Because of the patient' s chest pain with exacerbation although likely more typical and likely more related to COPD exacerbation I do recommend serial troponins at least to rule out CAD. This was discussed with my attending who agrees with plan. Case discussed with residents agreed admission to the group. Diagnosis Primary Impression: COPD exacerbation Admitting Information Admitting Physician Requests: Observation Jc Ortega Feb 23, 2018 14:54
[2018-02-23 14:56] LABS: AUTOMATED NEUTROPHIL # 5.3 TH/MM3 (1.8-7.7); BASOPHIL # 0.1 TH/MM3 (0-0.2); BASOPHIL % 1.1 % (0.0-2.0); EOSINOPHIL % 10.7 % (0.0-4.0); HEMATOCRIT 45.9 % (39.0-51.0); HEMOGLOBIN 15.7 GM/DL (13.0-17.0); LYMPH % 19.7 % (9.0-44.0); LYMPHOCYTE # 1.8 TH/MM3 (1.0-4.8); MEAN CELL VOLUME 89.3 FL (80.0-100.0); MEAN CORPUSCULAR HEMOGLOBIN 30.5 PG (27.0-34.0); MEAN CORPUSCULAR HGB CONC 34.2 % (32.0-36.0); MEAN PLATELET VOLUME 8.5 FL (7.0-11.0); MONO % 9.5 % (0.0-8.0); MONOCYTE # 0.9 TH/MM3 (0-0.9); PLATELET COUNT 251 TH/MM3 (150-450); RED BLOOD COUNT 5.14 MIL/MM3 (4.50-5.90); RED CELL DISTRIBUTION WIDTH 13.1 % (11.6-17.2)
[2018-02-23 15:12] LABS: PROTHROMBIN TIME - PATIENT 10.6 SEC (9.8-11.6)
[2018-02-23 15:16] LABS: ALBUMIN 3.5 GM/DL (3.4-5.0); ALT (GPT) 18 U/L (12-78); AST (GOT) 15 U/L (15-37); BLOOD UREA NITROGEN 8 MG/DL (7-18); CALCIUM 8.1 MG/DL (8.5-10.1); CHLORIDE 96 MEQ/L (98-107); CREATININE 0.94 MG/DL (0.60-1.30); GLOMERULAR FILTRATION RATE 78 ML/MIN (>89); GLUCOSE,RANDOM 100 MG/DL (74-106); MAGNESIUM 2.1 MG/DL (1.5-2.5); SODIUM (NA) 132 MEQ/L (136-145)
[2018-02-23 15:25] LABS: ALKALINE PHOSPHATASE 72 U/L (45-117); TOTAL PROTEIN 7.5 GM/DL (6.4-8.2); TROPONIN I LESS THAN 0.02 NG/ML (0.02-0.05)
--- NOTE | 2018-02-23 17:18 | HHI.HP ---
HPI Service Family Medicine Primary Care Physician No Primary Care Physician Admission Diagnosis acute COPD exacerbation Diagnoses: International Travel<30 Days: No Contact w/Intl Traveler<30days: No Known Affected Area: No History of Present Illness 77 y/o M w/hx of CAD ([address]) and COPD presenting w/SOB. PCP is w/ the [place]. In the last month, has been having worsening SOB. Had run out of symbicort and did not obtain a refill. Usually uses albuterol inhalers Q2H and Proair Q4H for shortness of breath/worsening symptoms. [place] it wasn't working today, so called 911. Had chest pain before he came to the ED but this has resolved. Had been feeling chest pain on the right side that was constant - this had progressively worsening w/shortness of breath and was not sudden. SOB worse w/laying flat and activity (walking across the room). Does not use O2 at home. No cough, rhinorrhea, vomiting. Has lightheadedness when he stands up quickly and slight swelling of his legs around the ankles that is noticeable at night. Patient states he received steroids/solumedrol and breathing treatments in [place]. Patient states he ate and drank very little today due to difficulty breathing. Last saw PCP in September, only sees doctor twice a year and does not feel his condition has been adequately controlled. Review of Systems Constitutional: COMPLAINS OF: Change in appetite, DENIES: Fever, Weight loss Eyes: DENIES: Blurred vision, Eye inflammation Ears, nose, mouth, throat: DENIES: Hearing loss, Throat pain Respiratory: COMPLAINS OF: Wheezing, DENIES: Shortness of breath Cardiovascular: COMPLAINS OF: Dyspnea on Exertion, DENIES: Chest pain Gastrointestinal: DENIES: Constipation, Diarrhea Genitourinary: DENIES: Urinary frequency, Urgency Musculoskeletal: DENIES: Joint pain Integumentary: DENIES: Abnormal pigmentation Neurologic: DENIES: Headache, Localized weakness Past Family Social History Past Medical History HTN GERD Thyroid disease Past Surgical History Has 4 stents "around the heart" - 12 years ago Allergies: Coded Allergies: chlordiazepoxide (Unverified Allergy, Severe, 09/26/17) methocarbamol (Unverified Allergy, Severe, 09/26/17) penicillin G (Unverified Allergy, Severe, 09/26/17) Active Ordered Medications Reported Meds & Active Scripts Active Prednisone 20 Mg Tab 40 Mg PO DAILY Take 40 mg (2 tablets) daily for 5 days Duoneb (Ipratropium-Albuterol Neb) 0.5-2.5 Mg/3 Ml Neb 1 Nebule INH Q6HR NEB PRN Reported Enalapril-Hydrochorothiazide (Enalapril-Hydrochlorothiazide) 10-25 Mg Tab Metoprolol Tartrate 25 Mg Tab 25 Mg PO BID Synthroid (Levothyroxine Sodium) 100 Mcg Tab 100 Mcg PO DAILY Prevacid (Lansoprazole) 15 Mg Capdr 15 Mg PO HS Aspirin 81 Mg Chew 81 Mg CHEW DAILY Family History Mom: breast cancer Dad: lung cancer Social History Lives in [facility] w/ in [place]. No smoking or drinking in 7.5 years. Smoked 50 years. Hx of heavy alcohol use. No illicit/recreational drug use. Physical Exam Vital Signs Vital Signs Date Time Temp Pulse Resp B/P (MAP) Pulse Ox O2 Delivery O2 Flow Rate FiO2 02/23/18 14:40 98 Nasal Cannula 2.00 02/23/18 14:40 98 Nasal Cannula 2.00 02/23/18 14:15 96 Nasal Cannula 2.00 02/23/18 14:10 97.5 88 20 122/85 (97) 98 Nasal Cannula 2.00 02/23/18 14:10 88 20 98 Nasal Cannula 2.00 02/23/18 14:03 97.5 86 20 122/85 (97) 98 Physical Exam GENERAL: This is a thin, elderly gentleman sitting up and leaning slightly forward in bed, occasionally pursing his lips w/breathing. Does not appear in distress and no use of accessory/intercostal muscles. SKIN: Cool and dry. EYES: Extraocular motions intact. ENT: Airway patent. NECK: Trachea midline. No JVD. CARDIOVASCULAR: Regular rate and rhythm, heart sounds difficult to auscultate due to lung sounds. RESPIRATORY: Expiratory rhonchi heard bilaterally, louder toward the lower lobes. Increased AP diameter. GASTROINTESTINAL: Abdomen firm, non-tender. MUSCULOSKELETAL: Extremities with slight pitting edema toward the ankles. No calf tenderness. NEUROLOGICAL: Awake and alert. No focal deficits. Normal speech. Laboratory Laboratory Tests Test 02/23/18 14:25 02/23/18 14:47 White Blood Count 9.0 Red Blood Count 5.14 Hemoglobin 15.7 Hematocrit 45.9 Mean Corpuscular Volume 89.3 Mean Corpuscular Hemoglobin 30.5 Mean Corpuscular Hemoglobin Concent 34.2 Red Cell Distribution Width 13.1 Platelet Count 251 Mean Platelet Volume 8.5 Neutrophils (%) (Auto) 59.0 Lymphocytes (%) (Auto) 19.7 Monocytes (%) (Auto) 9.5 Eosinophils (%) (Auto) 10.7 Basophils (%) (Auto) 1.1 Neutrophils # (Auto) 5.3 Lymphocytes # (Auto) 1.8 Monocytes # (Auto) 0.9 Eosinophils # (Auto) 1.0 Basophils # (Auto) 0.1 CBC Comment DIFF FINAL Differential Comment Prothrombin Time 10.6 Prothromb Time International Ratio 1.0 Activated Partial Thromboplast Time 27.0 Blood Urea Nitrogen 8 Creatinine 0.94 Random Glucose 100 Total Protein 7.5 Albumin 3.5 Calcium Level 8.1 Magnesium Level 2.1 Alkaline Phosphatase 72 Aspartate Amino Transf (AST/SGOT) 15 Alanine Aminotransferase (ALT/SGPT) 18 Total Bilirubin 1.0 Sodium Level 132 Potassium Level 4.3 Chloride Level 96 Carbon Dioxide Level 25.0 Anion Gap 11 Estimat Glomerular Filtration Rate 78 Total Creatine Kinase 82 Troponin I LESS THAN 0.02 B-Type Natriuretic Peptide 36 Thyroid Stimulating Hormone 3rd Gen 2.250 Blood Gas Puncture Site RT RADIAL Blood Gas Patient Temperature 98.6 Blood Gas HCO3 23 Blood Gas Base Excess -0.9 Blood Gas Oxygen Saturation 94 Arterial Blood pH 7.43 Arterial Blood Partial Pressure CO2 35 Arterial Blood Partial Pressure O2 74 Arterial Blood Oxygen Content 20.2 Arterial Blood Carboxyhemoglobin 1.2 Arterial Blood Methemoglobin 0.7 Blood Gas Hemoglobin 15.3 Blood Gas Inspired Oxygen 21 Result Diagram: 02/23/18 1425 02/23/18 1425 Imaging Last 24 hours Impressions Chest X-Ray 02/23/18 1415 Signed Impressions: CONCLUSION: No active disease. Mild hyperinflation. Course PER ED REPORT: "77-year-old male that presents to the ED for evaluation of shortness of breath with exertion. Patient was properly examined and was found to have signs and symptoms consistent with appears to be COPD exacerbation. Labs and imaging order. Patient was given duonebs and we will reasses. Labs and imaging were essentially unremarkable for acute disease. Patient was reassessed and does feel somewhat improved but his lungs still sound very wheezy. Patient does get symptomatic with just going to the bathroom. At this time I do recommend admission for COPD exacerbation and further treatment. Because of the patient's chest pain with exacerbation although likely more typical and likely more related to COPD exacerbation I do recommend serial troponins at least to rule out CAD. This was discussed with my attending who agrees with plan. Case discussed with residents agreed admission to the group. " [place] VTE Risk Assessment [facility] VTE Risk Assessment: Mod/High Risk (score >= 2) Assessment and Plan Assessment and Plan 77 y/o M w/hx of CAD and COPD admitted to obs for COPD exacerbation. Received solumedrol in [place] and duonebs in the ED. Satting 98-99% on 2L NC, no tachypnea or use of accessory muscles on admission. Blood gas shows slight alkalosis likely from respiratory cause (tachypnea). AP CXR shows some hyperinflation, but no infiltrates or consolidation. No crackles on lung exam, but expiratory rhonchi. Patient will likely require monitoring overnight and continued breathing treatments. Plan to start Symbicort and prednisone daily, titrate O2 to 88-92%, order CXR PA and LAT for the tomorrow, and reassess patient clinically for improvement. No further ACS r/o at this time due to patient not endorsing chest pain and initial cardiac enzymes being negative. Code Status FULL Discussed Condition With Dr. Pryor Problem List: (1) COPD exacerbation ICD Codes: J44.1 - COPD exacerbation Status: Acute Plan: COPD poorly controlled w/albuterol at home Duonebs Q4H Albuterol PRN Q2H for SOB Prednisone 40 mg daily Symbicort BID Con't pulse ox Titrate O2 to 88-92% Cardiac tele CXR PA&LAT Encourage patient to sit up and ambulate to prevent atelactasis If worsens, consider adding azithromycin (2) GERD (gastroesophageal reflux disease) ICD Codes: K21.9 - GERD (gastroesophageal reflux disease) Status: Chronic Plan: Controlled w/Protonix 20 mg HS (3) Hypertension ICD Codes: I10 - Hypertension Status: Acute Plan: Controlled Home metoprolol, enalapril-HCTZ, (4) Hypothyroidism ICD Codes: E03.9 - Hypothyroidism Status: Acute Plan: Con't home levothyroxine (5) CAD (coronary artery disease) ICD Codes: I25.10 - CAD (coronary artery disease) Status: Acute Plan: ASA chew daily (6) FEN Plan: Fluids: PO, encourage oral hydration for now Electrolytes: not at this time, check BMP in the AM and consider repletion Nutrition: Reg diet DVT prophy: Lovenox, SCDs GI prophy: Protonix Hs Problem Qualifiers (1) CAD (coronary artery disease): Qualified Codes: I25.10 - Atherosclerotic heart disease of [place] coronary artery without angina pectoris Anastasiia Rizo MD R1 Feb 23, 2018 17:18
[2018-02-23] MEDS ORDERED: RESP: ALBUTEROL 2.5 MG/3 ML NEB (PRN) INH (17:30)
[2018-02-23] MEDS ORDERED: ACETAMINOPHEN 325 MG TAB PO PRN (17:30)
[2018-02-23] MEDS ORDERED: ENOXAPARIN SODIUM 30 MG/0.3 ML SYRINGE SQ SCH (20:00)
[2018-02-23] MEDS ORDERED: PANTOPRAZOLE SOD 20 MG DELAYED RELEASE TAB PO SCH (21:00)
[2018-02-23] MEDS: BUDESONIDE-FORMOTEROL 160/4.5 MCG INHALER INH SCH (21:00)
[2018-02-23] MEDS: METOPROLOL TARTRATE 25 MG TAB PO SCH (21:17)
[2018-02-24] MEDS: RESP: ALBUTEROL 2.5 MG/IPRATROPIUM 0.5 MG NEB (SCH) INH ×3 (03:50→10:44)
[2018-02-24 04:04] VITALS: BP 132/75; PULSE 84; RESP 17; TEMP 98.5; O2SAT 97
[2018-02-24] MEDS ORDERED: LEVOTHYROXINE SODIUM 100 MCG TAB PO SCH (06:00)
[2018-02-24 07:21] VITALS: O2SAT 98
[2018-02-24 08:00] VITALS: BP 110/57; PULSE 87; RESP 18; TEMP 97.5; O2SAT 97
[2018-02-24 08:13] LABS: BICARBONATE 25.5 MEQ/L (21.0-32.0); CALCIUM 9.3 MG/DL (8.5-10.1); CREATININE 0.85 MG/DL (0.60-1.30)
[2018-02-24] MEDS ORDERED: predniSONE 20 MG TAB PO SCH (09:00)
[2018-02-24] MEDS ORDERED: ASPIRIN 81 MG CHEW TAB CHEW SCH (09:00)
[2018-02-24] MEDS: BUDESONIDE-FORMOTEROL 160/4.5 MCG INHALER INH SCH (09:04)
[2018-02-24] MEDS: METOPROLOL TARTRATE 25 MG TAB PO SCH (09:06)
[2018-02-24 09:14] VITALS: PULSE 95
[2018-02-24] MEDS ORDERED: Budeson-Formot 160-4.5 Mcg Inh INH ×2 (11:31→12:03)
[2018-02-24] MEDS ORDERED: Albuterol-Ipratropium Neb INH (11:31)
[2018-02-24] MEDS ORDERED: PRED20 PO (11:31)
--- NOTE | 2018-02-24 11:33 | HHI.DCPOC ---
Discharge Care Plan Diagnosis: (1) COPD exacerbation Goals to Promote Your Health * To prevent worsening of your condition and complications * To maintain your health at the optimal level Directions to Meet Your Goals Take your medications as prescribed Follow your dietary instruction Follow activity as directed Keep your appointments as scheduled Take your immunizations and boosters as scheduled If your symptoms worsen call your PCP, if no PCP go to Urgent Care Center or Emergency Room Smoking is Dangerous to Your Health. Avoid second hand smoke Call the 24-hour hour crisis hotline for domestic abuse at Anastasiia Rizo MD R1 Feb 24, 2018 11:33
[2018-02-24 11:50] VITALS: BP 101/59; PULSE 92; RESP 18; TEMP 97.7; O2SAT 93
--- NOTE | 2018-02-24 12:00 | HHI.FPPN ---
Subjective Remarks Patient was seen, examined and discussed with the medicine team. This is a 77-year-old male with known COPD, coronary artery disease status post 4 stents, hypertension, GERD, and hypothyroidism. He presented to the emergency department via [facility] for shortness of breath for 1 month which had gotten significantly worse to the point where he could not get to the bathroom or eat. Had been placed on Symbicort in the past but had been unable to secure refills. He is not using home O2. He did report some right- sided chest pain initially but this resolved with oxygen therapy. His medications at home include albuterol and DuoNeb's. He has not been on any steroids. He was given Solu-Medrol by [facility] in transit. This morning, he reports that when he gets up to go to the bathroom he does get short of breath. Overnight the nurses put him back on 2 L of oxygen by way of nasal cannula for de-satting down into the 80s, but now has been weaned and his saturations are stable in the mid 90s. Overnight, he had some cramping in his calves. He reports he had similar symptoms in the past when he was on atorvastatin. He no longer takes this medication. Objective Vitals Vital Signs Date Time Temp Pulse Resp B/P (MAP) Pulse Ox O2 Delivery O2 Flow Rate FiO2 02/24/18 09:14 95 02/24/18 08:00 97.5 87 18 110/57 (74) 97 02/24/18 07:21 98 Nasal Cannula 2.00 02/24/18 04:04 98.5 84 17 132/75 (94) 97 02/23/18 23:37 98.5 87 17 132/68 (89) 98 02/23/18 23:00 72 02/23/18 19:40 98.7 100 17 125/66 (85) 97 02/23/18 19:20 98 Nasal Cannula 2.00 02/23/18 18:21 97.9 109 20 168/84 (112) 99 02/23/18 18:02 02/23/18 14:40 98 Nasal Cannula 2.00 02/23/18 14:40 98 Nasal Cannula 2.00 02/23/18 14:15 96 Nasal Cannula 2.00 02/23/18 14:10 97.5 88 20 122/85 (97) 98 Nasal Cannula 2.00 02/23/18 14:10 88 20 98 Nasal Cannula 2.00 02/23/18 14:03 97.5 86 20 122/85 (97) 98 Result Diagram: 02/23/18 1425 02/24/18 0605 Other Results Walk test, walking 300 feet over 10 minutes revealed oxygen saturation without oxygen at 95%. Imaging Last Impressions Chest X-Ray 02/23/18 1415 Signed Impressions: CONCLUSION: No active disease. Mild hyperinflation. Objective Remarks O. CONSTITUTIONAL/GEN: normally nourished, in NAD. EYES: conjunctiva normal, PERRLA, EOMI. no scleral icterus ENT: Mucous membranes moist NECK: Supple LUNGS: Expiratory wheezing throughout. CARDIOVASCULAR: RR without murmur or gallop. No significant edema. GI/ABD: soft without masses, without organomegaly. Active bowel sounds NEURO: No focal deficits. SKIN: color normal, no rashes noted. HEME/LYMPH: no bruising, petechia or significant adenopathy MUSC: back is normal in appearance. Extremities are normal in appearance. PSYCH/MENTAL STATUS: Alert and oriented x 3. A/P Assessment and Plan 77 y/o M w/hx of CAD and COPD admitted to obs for COPD exacerbation. Received solumedrol in [facility] and duonebs in the ED. Satting 98-99% on 2L NC, no tachypnea or use of accessory muscles on admission. Blood gas shows slight alkalosis likely from respiratory cause (tachypnea). AP CXR shows some hyperinflation, but no infiltrates or consolidation. No crackles on lung exam, but expiratory rhonchi. Patient will likely require monitoring overnight and continued breathing treatments. Plan to start Symbicort and prednisone daily, titrate O2 to 88-92%, order CXR PA and LAT for the tomorrow, and reassess patient clinically for improvement. No further ACS r/o at this time due to patient not endorsing chest pain and initial cardiac enzymes being negative. Discharge Planning Anticipate discharge home today Attending Attestation Patient seen and examined. Case reviewed and discussed with the resident team. Agree with plan of care as discussed with me. Problem List: (1) COPD exacerbation ICD Codes: J44.1 - COPD exacerbation Status: Resolved Plan: COPD poorly controlled w/albuterol at home Duonebs Q4H Albuterol PRN Q2H for SOB Prednisone 40 mg daily Symbicort BID Titrate O2 to 88-92% Cardiac tele (2) GERD (gastroesophageal reflux disease) ICD Codes: K21.9 - GERD (gastroesophageal reflux disease) Status: Chronic Plan: Controlled w/Protonix 20 mg HS (3) Hypertension ICD Codes: I10 - Hypertension Status: Chronic Plan: Controlled Home metoprolol, enalapril-HCTZ, (4) Hypothyroidism ICD Codes: E03.9 - Hypothyroidism Status: Chronic Plan: Con't home levothyroxine (5) CAD (coronary artery disease) ICD Codes: I25.10 - CAD (coronary artery disease) Status: Chronic Plan: ASA chew daily (6) FEN Plan: Fluids: PO, encourage oral hydration for now Electrolytes: not at this time, check BMP in the AM and consider repletion Nutrition: Reg diet DVT prophy: Lovenox, SCDs GI prophy: Protonix Hs Problem Qualifiers (1) CAD (coronary artery disease): Qualified Codes: I25.10 - Atherosclerotic heart disease of m[place] coronary artery without angina pectoris Sarina Vargas MD Feb 24, 2018 12:00
--- NOTE | 2018-02-24 14:42 | EKG ---
Date Performed: 02/23/2018 Time Performed: 14:08:37 PTAGE: 77 years EKG: Sinus rhythm POSSIBLE LEFT ATRIAL ENLARGEMENT BORDERLINE ECG Since the PREVIOUS TRACING , no significant change noted PREVIOUS TRACIN09/26/2017 06.59 DOCTOR: Dani Chandra Interpretating Date/Time 02/24/2018 14:41:09
== END 2018-02-24 13:18 | disposition home or self-care (01) ==
LOC: NEPC 13:56 → NEDA 16:30 → NEPFCDU 18:21
PROVIDERS: ADMIT Family Medicine; ATTEND Family Medicine
DX: J44.1 Chronic obstructive pulmonary disease with (acute) exacerbation (principal); R42 Dizziness and giddiness; I25.10 Atherosclerotic heart disease of native coronary artery without angina pectoris; I10 Essential (primary) hypertension; I25.2 Old myocardial infarction; E78.00 Pure hypercholesterolemia, unspecified; E03.9 Hypothyroidism, unspecified; K21.9 Gastro-esophageal reflux disease without esophagitis; M19.90 Unspecified osteoarthritis, unspecified site; Z95.5 Presence of coronary angioplasty implant and graft; Z79.899 Other long term (current) drug therapy; Z79.82 Long term (current) use of aspirin; Z87.891 Personal history of nicotine dependence
CPT/HCPCS: 36600; 71045; 80048; 80053; 82550; 82805; 83735; 83880; 84443; 84484; 85025; 85610; 85730; 93005; 94150; 94618; 94640; 94664; 99285; G0378; J1650; J7512

== ENCOUNTER 2018-05-05 00:46 | Observation (INO) ==
[2018-05-05 01:40] LABS: Baso # (Auto) 0.1 th/mm3 (0.0-0.2); Baso % (Auto) 1.2 % (0.0-2.0); Eos # (Auto) 0.1 th/mm3 (0.0-0.4); Eos % (Auto) 1.5 % (0.0-4.0); Hematocrit 43.1 % (39.0-51.0); Hemoglobin 14.2 gm/dL (13.0-17.0); Lymph # (Auto) 0.7 th/mm3 (1.0-4.8); Lymph % (Auto) 7.4 % (9.0-44.0); Mean Corpuscular HGB Conc 32.9 % (32.0-36.0); Mean Corpuscular Hemoglobin 30.1 pg (27.0-34.0); Mean Corpuscular Volume 91.3 fL (80.0-100.0); Mean Platelet Volume 8.1 fL (7.0-11.0); Mono # (Auto) 0.5 th/mm3 (0.0-0.9); Mono % (Auto) 5.6 % (0.0-8.0); Neut % (Auto) 84.3 % (16.0-70.0); Platelet Count 238 th/mm3 (150-450); Red Blood Count 4.72 mil/mm3 (4.50-5.90); Red Cell Distribution Width 13.4 % (11.6-17.2); White Blood Count 9.5 th/mm3 (4.0-11.0)
--- NOTE | 2018-05-05 01:42 | XR ---
EXAM DATE: 05/05/2018 1:25 AM EDT AGE/SEX: 78 years / Male INDICATIONS: Sudden onset chest pain tonight. CLINICAL DATA: This is the patient's initial encounter. Patient reports that signs and symptoms have been present for 1 day and indicates a pain score of 7/10. MEDICAL/SURGICAL HISTORY: . Cardiovascular disease. COPD Coronary artery stent. COMPARISON: [facility] [place], CHEST SINGLE AP, 02/23/2018. . FINDINGS: A single AP view of the chest demonstrates the lungs to be symmetrically aerated without evidence of mass, infiltrate or effusion. The cardiomediastinal contours are unremarkable. Osseous structures a re intact. CONCLUSION: No acute disease. Electronically signed by: Brandt Jacobsen MD 05/05/2018 1:40 AM EDT
--- NOTE | 2018-05-05 01:44 | ED ---
HPI General Chief complaint: Neck Pain/Injury Stated complaint: Left shoulder Pain/chest pain Time Seen by Provider: 05/05/18 01:13 Source: patient Mode of arrival: EMS Limitations: no limitations History of Present Illness HPI narrative: The patient is a 78 year old male who presents to the [facility] emergency department with a history of pain that started in the left posterior shoulder and radiated up into the back of his head. It was sharp in character. Since arriving in the ER he began to have chest pain all over his chest bilaterally. The pain is sharp in his chest. He reports that since arriving in the emergency department the pain in his back has resolved. He reports that he continues to have a headache that is bitemporal and over his forehead. He reports having shortness of breath, however he reports that this is chronic related to his COPD. He denies having any nausea or diaphoresis. He has a history of 2 prior MIs and 4 stents. His last stent was placed in 2003. His P[facility] is Dr. Lamas [facility]. 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 He has a history of COPD. He denies any history of DVT or PE. The patient additionally reports having a cough for one day that has been productive occasionally of clear sputum. He denies having any nasal discharge or postnasal drip. He denies having any known recent fevers. On review of systems otherwise, he denies having any new neck pain, abdominal pain , vomiting, diarrhea, urinary symptoms, or neurologic symptoms. Related Data Home Medications Medication Instructions Recorded Confirmed Spiriva with HandiHaler 05/05/18 metoprolol tartrate 25 mg PO BID 05/05/18 Previous Rx's Medication Instructions Recorded nystatin 5 ml PO QID 10 Days #200 ml 05/05/18 Allergies Allergy/AdvReac Type Severity Reaction Status Date / Time chlordiazepoxide Allergy Severe Chest Pain Verified 05/05/18 01:06 methocarbamol Allergy Severe Chest Pain Verified 05/05/18 01:06 penicillin G Allergy Severe Chest Pain Verified 05/05/18 01:06 Review of Systems ROS: all other systems reviewed are negative (Except for that which was mentioned in his HPI.) [facility] Social History Social History Substance History: No History of Abuse Second Hand Smoke Exposure: No Smoking Status: Former smoker (quit 7 years ago) Smoking End Date: Reportedly quit smoking 7 years ago How Often Do You Have a Drink Containing Alcohol: Never Recent Out of Country Travel within the Last 8 Weeks: No Immunization History Tetanus Immunization: >5 Years Hx Influenza Vaccine This Season: No Exam Const General: cooperative, no acute distress and well developed Nutritional Appearance: well nourished Orientation: alert, awake and oriented x3 HENMT Head: normocephalic and atraumatic Nose: no nasal discharge and no epistaxis Mouth: moist mucous membranes Throat: uvula midline and other (On examination of the posterior oropharynx, the patient has white patches in the posterior oropharynx consistent with thrush.) Eyes Sclera: normal sclerae Pupils: PERRL Neck Neck: no meningeal signs, trachea midline and no JVD Resp Effort & Inspection: no use of accessory muscles Auscultation: clear to auscultation bilaterally Cardio Rate: tachycardic (Sinus tachycardia in the low 100s. No pulse deficits to the extremities on simultaneous auscultation and palpation of his radial artery) Rhythm: regular rhythm Heart Sounds: no gallops, no murmurs and no rubs GI Inspection: non-distended Palpation: soft, no hepatosplenomegaly and nontender Auscultation: normal bowel sounds Back/Spine/Pelvis Back: no CVA tenderness Skin General: dry skin (warm) Neuro General: alert, awake and oriented x3 Cranial Nerves: other (No facial asymmetry.) Speech: speech normal Motor: no movement abnormalities noted Extrem General: normal to inspection (No calf tenderness on palpation. Negative Homans sign. No palpable cords. 2+ pulses in all 4 extremities.), no clubbing , no cyanosis and edema (Trace pedal edema.) Laterality: bilaterally Psych Mood: congruent mood Affect: normal affect Judgment: judgment good Course Initial Documented Vital Signs Temperature 98.0 F 05/05/18 00:55 Pulse Rate 103 H 05/05/18 00:55 Respiratory Rate 16 05/05/18 00:55 Blood Pressure 125/78 05/05/18 00:55 Pulse Oximetry 98 05/05/18 00:55 Last Documented Vital Signs Temperature 98 F 05/05/18 11:00 Pulse Rate 113 H 05/05/18 13:44 Respiratory Rate 16 05/05/18 13:44 Blood Pressure 120/68 05/05/18 11:00 Pulse Oximetry 96 05/05/18 11:00 Medical Decision Making MDM Narrative Medical decision making narrative: During the course of the patient's emergency department visit, the patient's history, examination, and differential diagnosis were reviewed with the patient. The patient was placed on a desk monitor with oximetry and frequent blood pressure monitoring. The patient had IV access obtained and blood work sent for analysis. A diagnostic evaluation was started regarding the patient's new onset chest pain. The patient was initially provided Aspirin 324 mg p.o. 1, sublingual nitroglycerin 1, nitroglycerin 1 inch to the chest wall, morphine for pain, Zofran for nausea. The patient was given nystatin 5 mL to swish and swallow regarding his thrush. The patient's diagnostic studies were remarkable for a white count of 9.5, platelets 238, neutrophils 84.3, hemoglobin 14.2, PT 10.1, PTT 27.8, d-dimer 0.46 decreasing the likelihood of pulmonary embolism in this patient with no other significant risk factors. Chemistry was remarkable for a troponin I of less than 0.02, GFR 61, CPK 132, calcium 8.1, albumin 3.1 a chest x-ray showed no evidence of acute cardiopulmonary disease, CT scan of the head and neck showed no acute abnormality. The patient will be admitted to the chest pain center for rule out serial cardiac enzyme protocol followed right by consideration of stress testing. Medical Screen Exam Complete: Yes Emergency Medical Condition: Yes Differential Diagnosis Differential Diagnosis: Acute coronary syndrome, versus pneumothorax, versus congestive heart failure, versus pneumonia, versus pulmonary embolism Medical Records Medical records reviewed: Yes I reviewed the patient's medical records. Lab Data Lab results reviewed: Yes I reviewed the patient's lab results. Result diagrams: 05/05/18 01:10 05/05/18 01:10 Lab Results 05/05/18 05/05/18 05/05/18 Range/Units 01:10 01:10 01:10 WBC 9.5 (4.0-11.0) th/mm3 RBC 4.72 (4.50-5.90) mil/mm3 Hgb 14.2 (13.0-17.0) gm/dL Hct 43.1 (39.0-51.0) % MCV 91.3 (80.0-100.0) fL MCH 30.1 (27.0-34.0) pg MCHC 32.9 (32.0-36.0) % RDW 13.4 (11.6-17.2) % Plt Count 238 (150-450) th/mm3 MPV 8.1 (7.0-11.0) fL Neut % (Auto) 84.3 H (16.0-70.0) % Lymph % (Auto) 7.4 L (9.0-44.0) % [place] % (Auto) 5.6 (0.0-8.0) % Eos % (Auto) 1.5 (0.0-4.0) % Baso % (Auto) 1.2 (0.0-2.0) % Neut # (Auto) 8.0 H (1.8-7.7) th/mm3 Lymph # (Auto) 0.7 L (1.0-4.8) th/mm3 [place] # (Auto) 0.5 (0.0-0.9) th/mm3 Eos # (Auto) 0.1 (0.0-0.4) th/mm3 Baso # (Auto) 0.1 (0.0-0.2) th/mm3 WBC Differential . Differential Comment Auto diff final PT 10.1 (9.8-11.6) sec INR 1.0 Ratio APTT 27.8 (24.3-30.1) sec D-Dimer Quant (PE/DVT) 0.46 (0.00-0.50) mg/L FEU Sodium (136-145) meq/L Potassium (3.5-5.1) meq/L Chloride (98-107) meq/L Carbon Dioxide (21.0-32.0) meq/L Anion Gap (5-15) meq/L BUN (7-18) mg/dL Creatinine (0.60-1.30) mg/dL Estimated GFR (>89) mL/min Random Glucose (74-106) mg/dL Calcium (8.5-10.1) mg/dL Magnesium (1.5-2.5) mg/dL Total Bilirubin (0.2-1.0) mg/dL AST (15-37) U/L ALT (12-78) U/L Alkaline Phosphatase (45-117) U/L Total Creatine Kinase (39-308) U/L CK-MB (CK-2) (0.5-3.6) ng/mL Troponin I (0.02-0.05) ng/mL B-Natriuretic Peptide 21 (0-100) pg/mL Total Protein (6.4-8.2) g/dL Albumin (3.4-5.0) g/dL Lipase (73-393) U/L 05/05/18 05/05/18 05/05/18 Range/Units 01:10 04:10 07:10 WBC (4.0-11.0) th/mm3 RBC (4.50-5.90) mil/mm3 Hgb (13.0-17.0) gm/dL Hct (39.0-51.0) % MCV (80.0-100.0) fL MCH (27.0-34.0) pg MCHC (32.0-36.0) % RDW (11.6-17.2) % Plt Count (150-450) th/mm3 MPV (7.0-11.0) fL Neut % (Auto) (16.0-70.0) % Lymph % (Auto) (9.0-44.0) % [place] % (Auto) (0.0-8.0) % Eos % (Auto) (0.0-4.0) % Baso % (Auto) (0.0-2.0) % Neut # (Auto) (1.8-7.7) th/mm3 Lymph # (Auto) (1.0-4.8) th/mm3 [place] # (Auto) (0.0-0.9) th/mm3 Eos # (Auto) (0.0-0.4) th/mm3 Baso # (Auto) (0.0-0.2) th/mm3 WBC Differential Differential Comment PT (9.8-11.6) sec INR Ratio APTT (24.3-30.1) sec D-Dimer Quant (PE/DVT) (0.00-0.50) mg/L FEU Sodium 140 (136-145) meq/L Potassium 3.9 (3.5-5.1) meq/L Chloride 106 (98-107) meq/L Carbon Dioxide 28.0 (21.0-32.0) meq/L Anion Gap 6 (5-15) meq/L BUN 9 (7-18) mg/dL Creatinine 1.16 (0.60-1.30) mg/dL Estimated GFR 61 L (>89) mL/min Random Glucose 103 (74-106) mg/dL Calcium 8.1 L (8.5-10.1) mg/dL Magnesium 2.0 (1.5-2.5) mg/dL Total Bilirubin 0.4 (0.2-1.0) mg/dL AST 18 (15-37) U/L ALT 24 (12-78) U/L Alkaline Phosphatase 63 (45-117) U/L Total Creatine Kinase 170 146 132 (39-308) U/L CK-MB (CK-2) 4.0 H (0.5-3.6) ng/mL Troponin I Less than 0.02 L Less than 0.02 L Less than 0.02 L (0.02-0.05) ng/mL B-Natriuretic Peptide (0-100) pg/mL Total Protein 6.7 (6.4-8.2) g/dL Albumin 3.1 L (3.4-5.0) g/dL Lipase 208 (73-393) U/L Imaging Data Radiologist's impression: Myocardial Perfusion Scan Nuc Med 05/05/18 00:00 CONCLUSION: 1. Left ventricle perfusion is within normal limits. No fixed or reversible perfusion defect is identified. 2. Normal left ventricle wall motion and ejection fraction. Cervical Spine CT 05/05/18 01:11 CONCLUSION: 1. Multilevel degenerative changes as detailed above. 2. A small focus of air involving the lateral recess at C6-C7. This is felt to be discogenic in nature. Infections with gas producing organisms could have a similar appearance and is felt less likely. 3. Emphysematous changes. Chest X-Ray 05/05/18 01:12 CONCLUSION: No acute disease. Head CT 05/05/18 01:47 CONCLUSION: 1. No acute intracranial abnormality. . ECG Data Attestation: I personally reviewed and interpreted this ECG as follows: Interpretation: The patient had a EKG done on arrival. The patient's EKG reveals a sinus tachycardia heart rate of 101, QRS duration 95 ms, QTC [address] segment elevation. Discharge Plan Discharge Disposition Patient Disposition: 30 Still Patient Discharge Condition Condition: Good Discharge Order Discharge Orders: Discharge Order (Routine); Ordered 05/05/18 Ordered By: Tiffanie Aguiar Discharge Details Anticipated Discharge Date: 05/05/18 Diagnosis: Chest pain, rule out acute myocardial infarction, Candidiasis of mouth Physicians Team ED Provider: Kathya Souza Primary Care Provider: Macario Yao Attending Provider: Jesus Savage ED Status: Left Department Discharge Information Discharge Date/Time: 05/05/18 11:33
[2018-05-05] MEDS ORDERED: Morphine Inj 4 MG/ML Vial IV.PUSH ONE (01:48)
[2018-05-05 01:56] LABS: Activated Partial Thrombo Time 27.8 sec (24.3-30.1); Prothrombin Time 10.1 sec (9.8-11.6)
[2018-05-05 02:00] LABS: Alanine Aminotransferase 24 U/L (12-78); Albumin 3.1 g/dL (3.4-5.0); Anion Gap 6 meq/L (5-15); Aspartate Aminotransferase 18 U/L (15-37); Blood Urea Nitrogen 9 mg/dL (7-18); Calcium 8.1 mg/dL (8.5-10.1); Chloride 106 meq/L (98-107); Glomerular Filtration Rate 61 mL/min (>89); Glucose,Random 103 mg/dL (74-106); Lipase 208 U/L (73-393); Potassium 3.9 meq/L (3.5-5.1); Sodium 140 meq/L (136-145)
[2018-05-05] MEDS ORDERED: Nystatin Liq 500,000 UNIT/5 ML UDC SWISH-SWAL ONE (02:01)
[2018-05-05 02:04] LABS: Alkaline Phosphatase 63 U/L (45-117); Creatine Kinase 170 U/L (39-308); D-Dimer 0.46 mg/L FEU (0.00-0.50); Total Protein 6.7 g/dL (6.4-8.2)
--- NOTE | 2018-05-05 02:10 | CT ---
EXAM DATE: 05/05/2018 2:04 AM EDT AGE/SEX: 78 years / Male INDICATIONS: Headaches CLINICAL DATA: This is the patient's initial encounter. Patient reports that signs and symptoms have been present for 1 day and indicates a pain score of 3/10. MEDICAL/SURGICAL HISTORY: Cardiovascular disease. Chronic obstructive pulmonary disease. Coronary artery stent. RADIATION DOSE: 66.34 CTDI (mGy) COMPARISON: No prior exams available for comparison. TECHNIQUE: CT of the head without contrast. Using automated exposure control and adjustment of the mA and/or kV according to patient size, radiation dose was kept as low as reasonably achievable to ob tain optimal diagnostic quality images. DICOM format image data is available electronically for revi ew and comparison. FINDINGS: Cerebrum: The ventricles are normal for age. No evidence of midline shift, mass lesion, hemorrhage or acute infarction. No extraaxial fluid collections are seen. Posterior Fossa: The cerebellum and brainstem are intact. The 4th ventricle is midline. The cerebe llopontine angle is unremarkable. Extracranial: The visualized portion of the orbits is intact. Skull: The calvaria is intact. No evidence of skull fracture. CONCLUSION: 1. No acute intracranial abnormality. . Electronically signed by: Brandt Jacobsen MD 05/05/2018 2:09 AM EDT
--- NOTE | 2018-05-05 02:16 | CT ---
EXAM DATE: 05/05/2018 2:09 AM EDT AGE/SEX: 78 years / Male INDICATIONS: Right shoulder pain CLINICAL DATA: This is the patient's initial encounter. Patient reports that signs and symptoms have been present for 1 day and indicates a pain score of 5/10. MEDICAL/SURGICAL HISTORY: Cardiovascular disease. Chronic obstructive pulmonary disease. Coron glo artery stent. RADIATION DOSE: 19.45 CTDI (mGy) COMPARISON: No prior exams available for comparison. TECHNIQUE: Contiguous axial images were obtained using helical multirow detector technique. The vol umetric data was post-processed with multiplanar reconstruction in oblique axial, sagittal, and coron al planes. Using automated exposure control and adjustment of the mA and/or kV according to patient s ize, radiation dose was kept as low as reasonably achievable to obtain optimal diagnostic quality abner ges. DICOM format image data is available electronically for review and comparison. FINDINGS: Vertebrae: Normal vertebral body height. Alignment: Normal. No subluxation. Emphysematous changes within the visualized lung apices. C2-3: The bony spinal canal is normal in size. No evidence of disc bulge or herniation. The neural foramina are bilaterally patent. C3-4: There is a broad-based disc bulge. No central canal stenosis. Prominent bony uncovertebral hyp ertrophy on the right generating moderate right neural foraminal narrowing. The left neural foramen i s patent. C4-5: A mild central bulge. No central canal stenosis. Moderate bony uncovertebral hypertrophy with moderate bilateral neural foraminal narrowing. C5-6: A mild central bulge. No central canal stenosis. Moderate bony uncovertebral hypertrophy with moderate bilateral neural foraminal narrowing.. C6-7: Disc space narrowing with a mild broad-based disc osteophyte complex. Central canal remains pa tent. Bony uncovertebral hypertrophy generates moderate bilateral neural foraminal narrowing. A tiny focus of air is seen within the right lateral recess felt to be discogenic in nature. C7-T1: The bony spinal canal is normal in size. No evidence of disc bulge or herniation. The neura l foramina are bilaterally patent. CONCLUSION: 1. Multilevel degenerative changes as detailed above. 2. A small focus of air involving the lateral recess at C6-C7. This is felt to be discogenic in natu re. Infections with gas producing organisms could have a similar appearance and is felt less likely. 3. Emphysematous changes. Electronically signed by: Brandt Jacobsen MD 05/05/2018 2:15 AM EDT
[2018-05-05] MEDS ORDERED: Acetaminophen 500 MG Tablet PO PRN (03:42)
[2018-05-05 04:45] LABS: Creatine Kinase 146 U/L (39-308)
[2018-05-05 08:04] LABS: Creatine Kinase 132 U/L (39-308)
--- NOTE | 2018-05-05 08:05 | P.HPCA ---
History of Present Illness Primary Care Physician: Macario Yao DO and Dr. Lamas ([facility]) Chief Complaint: Chest pain History of Present Illness: 78 year old male with history of CAD, cardiac stents, COPD, and hypertension presents emergency room for further evaluation left shoulder pain. Onset last evening, discomfort awakened him from sleep. Location left scapula area. Severe in severity. Radiation to left posterior head. Duration 20 seconds. No associated symptoms of nausea, vomiting, dyspnea, or diaphoresis. Severe discomfort followed by lingering pain for approximately 45 minutes. No precipitating or relieving factors. Denies similar pain in the past. Discomfort not similar to past cardiac events. No recent illness, fever, or injury. No recent cardiac testing. Does not follow with a catalyst recovery operator. Follows with a MS and private primary care provider and a meteorology professor. Past cardiac testing 09/26/14 Lexiscan-no stress-induced ischemia or other acute abnormalities demonstrated. Normal left ventricular wall motion. 08/07/04 Cardiac [id number]-[id number]-4. Patient had recovery of left ventricular function from his previous procedure and now has ejection fraction of about 50%. 2. Two-vessel coronary artery disease with moderate left main disease. 3. Successful stenting of the proximal circumflex artery. Good long- term results with previous stents in the left anterior descending and circumflex marginal and distal right coronary arteries. 03/06/04 Cardiac [id number]-Umecyksqfd-Ngnslrylaz impaired left ventricular function with severe three-vessel coronary artery disease, but successful three-vessel stenting. Stents placed to LAD, circumflex, and RCA. - Diagnosis (1) Chest pain, rule out acute myocardial infarction (2) CAD (coronary artery disease) (3) Hypertension (4) COPD (chronic obstructive pulmonary disease) Review of Systems All other systems reviewed negative except as stated in HPI PMFSH - History History Provided By: Patient - Medical History Medical History: Medical History (Last Reviewed 05/05/18 @ 10:34 by ALANNA Angela) Arthritis COPD (chronic obstructive pulmonary disease) GERD (gastroesophageal reflux disease) Heart attack Hypertension Hypothyroidism - Surgical History Surgical History: Surgical History (Last Reviewed 05/05/18 @ 10:34 by ALANNA Angela) H/O heart artery stent - Tobacco History Second Hand Smoke Exposure: No Tobacco Use In Past 30 Days: No Smoking Status: Former smoker (quit 7 years ago) Smoking End Date: Reportedly quit smoking 7 years ago - Alcohol History How Often Do You Have a Drink Containing Alcohol: Never - Substance Use History Substance History: No History of Abuse - Travel History Recent Travel Out of the Country Within the Last 8 Weeks: No - Immunization History Tetanus Immunization: >5 Years Hx Influenza Vaccine This Season: No Medications and Allergies Active Medications: Active Medications Acetaminophen (Tylenol) 500 mg PO Q4H PRN PRN Reason: HEADACHE Sodium Chloride (Ns Flush) 2 ml IV.FLUSH UNSCH PRN PRN Reason: FLUSH AFTER USING IV ACCESS Last Admin: 05/05/18 01:37 Dose: 2 ml Sodium Chloride (Ns Flush) 2 ml IV.FLUSH BID JAVIER Sodium Chloride (Ns Flush) 2 ml IV.FLUSH PRN PRN PRN Reason: FLUSH AFTER USING IV ACCESS Allergies Allergy/AdvReac Type Severity Reaction Status Date / Time chlordiazepoxide Allergy Severe Chest Pain Verified 05/05/18 01:06 methocarbamol Allergy Severe Chest Pain Verified 05/05/18 01:06 penicillin G Allergy Severe Chest Pain Verified 05/05/18 01:06 Home Medications Medication Instructions Recorded Confirmed Type Spiriva with HandiHaler 05/05/18 History metoprolol tartrate 25 mg PO BID 05/05/18 History Exam Vital signs: Vital Signs 05/05/18 00:55 05/05/18 02:04 05/05/18 03:17 Temperature 98.0 F Pulse Rate 103 H Respiratory Rate 16 20 Blood Pressure 125/78 Pulse Oximetry 98 98 05/05/18 03:18 05/05/18 03:42 05/05/18 07:15 Temperature Pulse Rate 82 86 Respiratory Rate 20 18 18 Blood Pressure 117/71 108/67 Pulse Oximetry 97 05/05/18 07:39 Temperature Pulse Rate Respiratory Rate Blood Pressure Pulse Oximetry 97 Intake & Output 05/04/18 05/05/18 05/05/18 18:59 06:59 18:59 Weight 77.564 kg Narrative: GENERAL: Alert WN, WD, NAD, pleasant, elderly male easily awakens from sleep. HEAD: NC, AT CV: RRR, without murmur, rub, or gallop. RESP: Wheeze throughout bilateral, no crackles. Symmetrical chest rise, nonlabored, able to speak in full sentences ABD: Soft, NT, ND, no masses, positive bowel tones EXT: Pulses +2x4, no dependent edema MS: Normal tone x4 extremities, nontender, no obvious deformities, full range of motion NEURO: CN II through CN XII grossly intact, motor strength 5/5 PSYCH: A+O x3, pleasant affect, appropriate speech, mood, insight and judgment SKIN: Normal turgor, normal texture, no lesions, no rashes, brisk cap refill Results 05/05/18 01:10 05/05/18 01:10 Cardiac Enzymes 05/05/18 05/05/18 05/05/18 Range/Units 01:10 01:10 04:10 AST 18 (15-37) U/L CK-MB (CK-2) 4.0 H (0.5-3.6) ng/mL Troponin I Less than 0.02 L Less than 0.02 L (0.02-0.05) ng/mL B-Natriuretic Peptide 21 (0-100) pg/mL 05/05/18 Range/Units 07:10 AST (15-37) U/L CK-MB (CK-2) (0.5-3.6) ng/mL Troponin I Less than 0.02 L (0.02-0.05) ng/mL B-Natriuretic Peptide (0-100) pg/mL Coagulation 05/05/18 05/05/18 Range/Units 01:10 01:10 PT 10.1 (9.8-11.6) sec APTT 27.8 (24.3-30.1) sec B-Natriuretic Peptide 21 (0-100) pg/mL CBC 05/05/18 Range/Units 01:10 WBC 9.5 (4.0-11.0) th/mm3 RBC 4.72 (4.50-5.90) mil/mm3 Hgb 14.2 (13.0-17.0) gm/dL Hct 43.1 (39.0-51.0) % Plt Count 238 (150-450) th/mm3 Neut # (Auto) 8.0 H (1.8-7.7) th/mm3 Lymph # (Auto) 0.7 L (1.0-4.8) th/mm3 [place] # (Auto) 0.5 (0.0-0.9) th/mm3 Eos # (Auto) 0.1 (0.0-0.4) th/mm3 Baso # (Auto) 0.1 (0.0-0.2) th/mm3 Comprehensive Metabolic Panel 05/05/18 Range/Units 01:10 Sodium 140 (136-145) meq/L Potassium 3.9 (3.5-5.1) meq/L Chloride 106 (98-107) meq/L Carbon Dioxide 28.0 (21.0-32.0) meq/L BUN 9 (7-18) mg/dL Creatinine 1.16 (0.60-1.30) mg/dL Calcium 8.1 L (8.5-10.1) mg/dL AST 18 (15-37) U/L ALT 24 (12-78) U/L Alkaline Phosphatase 63 (45-117) U/L Total Protein 6.7 (6.4-8.2) g/dL Albumin 3.1 L (3.4-5.0) g/dL Intake and Output 05/04/18 05/05/18 05/05/18 22:59 06:59 14:59 Other: Weight 77.564 kg EKG interpretations - EKG EKG results cardiology: sinus rhythm (1st EKG-NST, no st segment, 2nd/3rd EKG- NSR, st elevated inferior and v6, likely early repolarization) Caprini VTE Risk Assessment Caprini VTE Risk Assessment: Moderate/High Risk (score >= 2) Caprini Risk Assessment Model: Point Value = 1 Point Value = 2 Point Value = 3 Point Value = 5 Age 41-60 Minor surgery BMI > 25 kg/m2 Swollen legs Varicose veins or History of unexplained or recurrent spontaneous Oral contraceptives or hormone replacement Sepsis (< 1 month) Serious lung disease, including pneumonia (< 1 month) Abnormal pulmonary function Acute myocardial infarction Congestive heart failure (< 1 month) History of inflammatory bowel disease Medical patient at bed rest Age 61-74 Arthroscopic surgery Major open surgery (> 45 min) Laparoscopic surgery (> 45 min) Malignancy Confined to bed (> 72 hours) Immobilizing plaster cast Central venous access Age >= 75 History of VTE Family history of VTE Factor V Leiden Prothrombin [id number] Lupus anticoagulant Anticardiolipin antibodies Elevated serum homocysteine Heparin-induced thrombocytopenia Other congenital or acquired thrombophilia Stroke (< 1 month) Elective arthroplasty Hip, pelvis, or leg fracture Acute spinal cord injury (< 1 month) Prophylaxis Regimen: Total Risk Factor Score Risk Level Prophylaxis Regimen 0-1 Low Early ambulation 2 Moderate Order ONE of the following: *Sequential Compression Device (SCD) *Heparin 5000 units SQ BID 3-4 Higher Order ONE of the following medications: *Heparin 5000 units SQ TID *Enoxaparin/Lovenox 40 mg SQ daily (WT < 150 kg, CrCl > 30 mL/min) *Enoxaparin/Lovenox 30 mg SQ daily (WT < 150 kg, CrCl > 10-29 mL/min) *Enoxaparin/Lovenox 30 mg SQ BID (WT < 150 kg, CrCl > 30 mL/min) AND/OR *Sequential Compression Device (SCD) 5 or more Highest Order ONE of the following medications: *Heparin 5000 units SQ TID (Preferred with Epidurals) *Enoxaparin/Lovenox 40 mg SQ daily (WT < 150 kg, CrCl > 30 mL/min) *Enoxaparin/Lovenox 30 mg SQ daily (WT < 150 kg, CrCl > 10-29 mL/min) *Enoxaparin/Lovenox 30 mg SQ BID (WT < 150 kg, CrCl > 30 mL/min) AND *Sequential Compression Device (SCD) Assessment and Plan - Assessment (1) Chest pain, rule out acute myocardial infarction Code(s): R07.9 - Chest pain, unspecified Status: Acute Plan: Admitted to chest pain center. ACS ruled out with 3 sets of EKGs and cardiac enzymes. Seen and evaluated by Dr. Tuan Mejia. Proceed with Lexiscan this a.m. Albuterol treatment prior to scan. If unremarkable, plans are to discharge home with follow-up with primary care provider. (2) CAD (coronary artery disease) Code(s): I25.10 - Atherosclerotic heart disease of [place] coronary artery without angina pectoris Status: Chronic Plan: Proceed with cardiac testing. Started to establish with a catalyst recovery operator. (3) Hypertension Code(s): I10 - Essential (primary) hypertension Status: Chronic Plan: Continue antihypertensive once updated home EMR. (4) COPD (chronic obstructive pulmonary disease) Code(s): J44.9 - Chronic obstructive pulmonary disease, unspecified Status: Chronic Plan: Albuterol nebulizer treatment 1 dose now, followed every 6 hours. Continue Spiriva. (2) CAD (coronary artery disease) Qualifiers: Associated angina: angina presence unspecified (3) Hypertension Qualifiers: Hypertension type: unspecified Qualified Code(s): I10 - Essential (primary) hypertension
[2018-05-05] MEDS ORDERED: Tiotropium Bromide 18 MCG/ACT Inhaler INH SCH (09:00)
[2018-05-05 09:23] VITALS: RESP 16
[2018-05-05] MEDS ORDERED: Regadenoson Inj 0.4 MG/5 ML Syringe IV.PUSH ONE (12:16)
--- NOTE | 2018-05-05 13:19 | NM ---
EXAM DATE: 05/05/2018 1:10 PM EDT AGE/SEX: 78 years / Male INDICATIONS:Angina. Myocardial infarction Substernal chest pain radiating to left jaw. CLINICAL DATA: This is the patient's initial encounter. Patient reports that signs and symptoms have been present for 1 day and indicates a pain score of 4/10. MEDICAL/SURGICAL HISTORY: Chronic obstructive pulmonary disease. Gastroesophageal reflux disea se. Hypertension. Coronary artery stent. COMPARISON: No prior exams available for comparison. DOSE: 8.5 mCi Tc 99m Myoview at rest 25.4 mCi [id number] at stress 0.4 mg Lexiscan STRESS SYMPTOMS: None noted. EJECTION FRACTION: 70 % TECHNIQUE: The patient underwent pharmacologic stress with infusion of prescribed dose. Continuous ECG tracing was monitored during stress. Gated SPECT imaging was performed after stress and conventi onal SPECT imaging was performed at rest. The examination was performed on a SPECT/CT scanner, both attenuation and non-corrected datasets were reviewed. FINDINGS: Distribution: The maximum perfused segment at stress is in the anterior lateral wall. Perfusion Study: The pattern of perfusion at stress is within normal limits. Gated Study: There are intact wall motion and wall thickening without hypokinetic or dyskinetic segm ents. The ejection fraction is calculated at 70%. RISK CATEGORY: Low (<1% Annual Motality Rate) CONCLUSION: 1. Left ventricle perfusion is within normal limits. No fixed or reversible perfusion defect is iden tified. 2. Normal left ventricle wall motion and ejection fraction. Electronically signed by: Macario Bauer MD 05/05/2018 1:18 PM EDT
[2018-05-05 13:45] VITALS: PULSE 113
--- NOTE | 2018-05-05 14:22 | ECG ---
Date Performed: 05/05/2018 Time Performed: 07:28:20 PTAGE: 78 years EKG: Sinus rhythm PREVIOUS TRACING : 05/05/2018 07.18 Since previous tracing, no significant change noted DOCTOR: Tuan Mejia Interpretating Date/Time 05/05/2018 14:21:50
--- NOTE | 2018-05-05 14:23 | ECG ---
Date Performed: 05/05/2018 Time Performed: 04:18:33 PTAGE: 78 years EKG: Sinus rhythm NORMAL ECG NO PREVIOUS TRACING DOCTOR: Tuan Mejia Interpretating Date/Time 05/07/2018 07:01:25
--- NOTE | 2018-05-05 14:26 | ECG ---
Date Performed: 05/05/2018 Time Performed: 01:02:03 PTAGE: 78 years EKG: NORMAL Sinus rhythm ABNORMAL RHYTHM ECG PREVIOUS TRACING : 02/23/2018 14.08 DOCTOR: Tuan Mejia Interpretating Date/Time 05/05/2018 14:24:28
--- NOTE | 2018-05-05 14:30 | TR ---
Date Performed: 05/05/2018 Time Performed: 12:16:15 DOCTOR: Tuan Mejia DRUG LIST: ALBUTEROL VASOTEC METOPROLOL CLINICAL HISTORY: CHEST PAIN REASON FOR TEST: REASON FOR ENDING: OBSERVATION: CONCLUSION: COMMENTS: Lexiscan stress test was performed under standard four minute protocol. Radionuclide was injected one minute prior to ending the test. No electrocardiographic abormalities were present t o suggest ischemia. Nuclear imaging and interpretation are pending.
[2018-05-05 15:42] VITALS: BP 120/68; TEMP 98; O2SAT 96
== END 2018-05-05 15:33 | disposition home or self-care (01) ==
LOC: NEPE 00:46 → NEDA 00:46 → NEPFCDU 00:46 → NEDH 08:05 → NEPFCDU 11:15

== ENCOUNTER 2018-07-09 03:48 | Inpatient (IN) ==
--- NOTE | 2018-07-09 04:05 | ED ---
HPI General Chief Complaint: Shortness of Breath/Dyspnea Stated Complaint: SOB Time Seen by Provider: 07/09/18 03:51 Source: patient Mode of arrival: EMS Limitations: no limitations History of Present Illness The patient is a 78-year-old male who presents to the emergency department via EMS for shortness of breath. The patient states he has a history of COPD and is followed [facility] by a contract coordinator. The patient states that he has had shortness of breath for the last 6 hours, awakened at 1 AM and had difficulty going from the bath the patient also notes he has had intermittent chills and sweats tonight and back to bed secondary to the shortness of breath. The patient does have a history of COPD but is not currently on home oxygen. He does use nebulizers intermittently. The patient states his last hospitalization was several months ago and does note a previous history of intubation secondary to COPD. The patient notes intermittent lower extremity edema that is worse at night prior to bed and improved in the morning. The patient does state he has had 2 previous MIs but denies any known history of CHF. The patient denies any history of pulmonary embolism or DVT. The patient also states he had 2 episodes of hemoptysis several days ago which has currently resolved. MD Complaint: Reports shortness of breath Onset (ago): hour(s) Context: Reports other Severity: severe Consistency/Duration: improved Relieving factors: bronchodilators Exacerbating factors: talking Known history of: Reports COPD Associated symptoms: Reports cough, wheezing, sputum production and hemoptysis Treatment prior to arrival: Reports oxygen, bronchodilator and other Related Data Home oxygen amount: none Home Medications Medication Instructions Recorded Confirmed Spiriva with HandiHaler 05/05/18 metoprolol tartrate 25 mg PO BID 05/05/18 07/09/18 albuterol sulfate 07/09/18 budesonide-formoterol [Symbicort] 2 puff INHALATION BID 07/09/18 07/09/18 enalapril maleate 5 mg PO DAILY 07/09/18 07/09/18 ipratropium-albuterol 3 ml INHALATION QID 07/09/18 07/09/18 levothyroxine 100 mcg PO DAILY 07/09/18 07/09/18 Allergies Allergy/AdvReac Type Severity Reaction Status Date / Time chlordiazepoxide Allergy Severe Chest Pain Verified 07/09/18 04:05 methocarbamol Allergy Severe Chest Pain Verified 07/09/18 04:05 penicillin G Allergy Severe Chest Pain Verified 07/09/18 04:05 Review of Systems ROS: all other systems reviewed are negative [facility] Medical History Medical History Arthritis (Acute) COPD (chronic obstructive pulmonary disease) (Acute) GERD (gastroesophageal reflux disease) (Acute) Heart attack (Acute) Hypertension (Acute) Hypothyroidism (Acute) Surgical History Surgical History Hx of heart artery stent (Acute) H/O heart artery stent (Acute) Social History Social History Substance History: No History of Abuse Second Hand Smoke Exposure: No Smoking Status: Former smoker Smoking End Date: Reportedly quit smoking 7 years ago How Often Do You Have a Drink Containing Alcohol: Never Recent Travel in [facility] within the Last 8 Weeks: No Recent Out of Country Travel within the Last 8 Weeks: No Exam Narrative Exam Narrative: GENERAL: Awake, alert, 78-year-old male who appears his stated age and is in moderate respiratory distress SKIN: Focused skin assessment warm/dry. HEAD: Atraumatic. Normocephalic. EYES: No injection or drainage. ENT: No nasal bleeding or discharge. Mucous membranes pink and moist. NECK: Trachea midline. No JVD. CARDIOVASCULAR: Regular, tachycardic with a heart rate of 115. RESPIRATORY: Tachypnea with a respiratory rate of 24. Prolonged expiratory phase with diffuse wheezing. 3-4 word sentences. GASTROINTESTINAL: Abdomen soft, non-tender, nondistended. MUSCULOSKELETAL: No obvious deformities. No clubbing. No cyanosis. Trace lower extremity edema. NEUROLOGICAL: Awake and alert. No obvious cranial nerve deficits. Motor grossly within normal limits. Normal speech. PSYCHIATRIC: Appropriate mood and affect; insight and judgment normal. Course Initial Documented Vital Signs Temperature 100.3 F H 07/09/18 03:54 Pulse Rate 117 H 07/09/18 03:54 Respiratory Rate 28 H 07/09/18 03:54 Blood Pressure 174/81 H 07/09/18 03:54 Pulse Oximetry 99 07/09/18 03:54 Last Documented Vital Signs Temperature 100.3 F H 07/09/18 03:54 Pulse Rate 112 H 07/09/18 04:01 Respiratory Rate 28 H 07/09/18 04:01 Blood Pressure 174/81 H 07/09/18 03:54 Pulse Oximetry 100 07/09/18 04:17 Medical Decision Making MDM Narrative Medical decision making narrative: IV was established, labs are drawn and sent, and the patient was placed on cardiac telemetry monitoring and continuous pulse oximetry monitoring. The patient was noted to have a temperature of 100.3, therefore, influenza screen, blood cultures, lactic acid were sent to lab. The patient did receive Solu-Medrol and 1 DuoNeb prior to arrival, was administered 2 more duo nebs. Chest x-ray was obtained. EKG was ordered and interpreted. The patient's white count was normal at 10.8, lactic acid was normal. Chest x- ray reveals possible infiltrate in the right lung field, patient was tachycardic with recent hemoptysis and lower extremity edema which is intermittent. Therefore, CT pulmonary angiogram was ordered to rule out PE. CT pulmonary angiogram reveals focal consolidation left upper lobe, no evidence of PE. The patient was covered with Rocephin and Zithromax to cover for community-acquired pneumonia with a temperature of 100.3, shortness of breath, and productive cough. The on-call medical service was paged for admission. I discussed the patient with Dr. Payton who agrees with admission. Medical Screen Exam Complete: Yes Emergency Medical Condition: Yes Differential Diagnosis Differential Diagnosis: Differential diagnosis includes COPD exacerbation, bronchitis, pneumonia, pulmonary embolism, pulmonary edema, pleural effusion, congestive heart failure, cardiomyopathy. Lab Data Lab results reviewed: Yes I reviewed the patient's lab results. Result diagrams: 07/09/18 04:10 07/09/18 04:00 Lab Results 07/09/18 07/09/18 07/09/18 Range/Units 04:00 04:00 04:10 WBC 10.8 (4.0-11.0) th/mm3 RBC 4.17 L (4.50-5.90) mil/mm3 Hgb 12.6 L (13.0-17.0) gm/dL Hct 36.3 L (39.0-51.0) % MCV 87.1 (80.0-100.0) fL MCH 30.2 (27.0-34.0) pg MCHC 34.7 (32.0-36.0) % RDW 13.2 (11.6-17.2) % Plt Count 250 (150-450) th/mm3 MPV 7.5 (7.0-11.0) fL Neut % (Auto) 80.9 H (16.0-70.0) % Lymph % (Auto) 7.2 L (9.0-44.0) % [place] % (Auto) 9.9 H (0.0-8.0) % Eos % (Auto) 1.0 (0.0-4.0) % Baso % (Auto) 1.0 (0.0-2.0) % Neut # (Auto) 8.7 H (1.8-7.7) th/mm3 Lymph # (Auto) 0.8 L (1.0-4.8) th/mm3 [place] # (Auto) 1.1 H (0.0-0.9) th/mm3 Eos # (Auto) 0.1 (0.0-0.4) th/mm3 Baso # (Auto) 0.1 (0.0-0.2) th/mm3 WBC Differential . Differential Comment Auto diff final Sodium 133 L (136-145) meq/L Potassium 3.2 L (3.5-5.1) meq/L Chloride 103 (98-107) meq/L Carbon Dioxide 20.3 L (21.0-32.0) meq/L Anion Gap 10 (5-15) meq/L BUN 8 (7-18) mg/dL Creatinine 0.67 (0.60-1.30) mg/dL Estimated GFR Greater than 89 (>89) mL/min Random Glucose 85 (74-106) mg/dL Lactic Acid (0.4-2.0) mmol/L Calcium 6.2 L* (8.5-10.1) mg/dL Prot Corrected Calcium 7.0 L* (8.5-10.1) mg/dL Magnesium 1.2 L (1.5-2.5) mg/dL Total Bilirubin 0.7 (0.2-1.0) mg/dL AST 15 (15-37) U/L ALT 15 (12-78) U/L Alkaline Phosphatase 53 (45-117) U/L Total Creatine Kinase 221 (39-308) U/L CK-MB (CK-2) 3.1 (0.5-3.6) ng/mL Troponin I Less than 0.02 L (0.02-0.05) ng/mL B-Natriuretic Peptide 52 (0-100) pg/mL Total Protein 5.4 L (6.4-8.2) g/dL Albumin 2.1 L (3.4-5.0) g/dL 07/09/18 Range/Units 04:10 WBC (4.0-11.0) th/mm3 RBC (4.50-5.90) mil/mm3 Hgb (13.0-17.0) gm/dL Hct (39.0-51.0) % MCV (80.0-100.0) fL MCH (27.0-34.0) pg MCHC (32.0-36.0) % RDW (11.6-17.2) % Plt Count (150-450) th/mm3 MPV (7.0-11.0) fL Neut % (Auto) (16.0-70.0) % Lymph % (Auto) (9.0-44.0) % [place] % (Auto) (0.0-8.0) % Eos % (Auto) (0.0-4.0) % Baso % (Auto) (0.0-2.0) % Neut # (Auto) (1.8-7.7) th/mm3 Lymph # (Auto) (1.0-4.8) th/mm3 [place] # (Auto) (0.0-0.9) th/mm3 Eos # (Auto) (0.0-0.4) th/mm3 Baso # (Auto) (0.0-0.2) th/mm3 WBC Differential Differential Comment Sodium (136-145) meq/L Potassium (3.5-5.1) meq/L Chloride (98-107) meq/L Carbon Dioxide (21.0-32.0) meq/L Anion Gap (5-15) meq/L BUN (7-18) mg/dL Creatinine (0.60-1.30) mg/dL Estimated GFR (>89) mL/min Random Glucose (74-106) mg/dL Lactic Acid 1.0 (0.4-2.0) mmol/L Calcium (8.5-10.1) mg/dL Prot Corrected Calcium (8.5-10.1) mg/dL Magnesium (1.5-2.5) mg/dL Total Bilirubin (0.2-1.0) mg/dL AST (15-37) U/L ALT (12-78) U/L Alkaline Phosphatase (45-117) U/L Total Creatine Kinase (39-308) U/L CK-MB (CK-2) (0.5-3.6) ng/mL Troponin I (0.02-0.05) ng/mL B-Natriuretic Peptide (0-100) pg/mL Total Protein (6.4-8.2) g/dL Albumin (3.4-5.0) g/dL Imaging Data Attestation: I personally reviewed and interpreted this imaging study as follows : My impression: Atelectasis versus infiltrate right lung field Radiologist's impression: Chest X-Ray 07/09/18 03:56 CONCLUSION: Increased density in the right upper lung likely related to focal consolidation. There is also some minimal consolidation or atelectasis at the left base. Chest CTA 07/09/18 04:33 CONCLUSION: 1. No pulmonary embolus. 2. Focal consolidation left upper lung. This is nonspecific. It may represent an area of pneumonia. An underlying mass cannot be excluded. It be recommended that patient be treated and a follow-up CT examination be obtained to demonstrate this completely resolves. This does not completely resolve, further evaluate for underlying neoplasm could be performed. 3. Nonspecific prominent lymph nodes in the mediastinum. 4. Small focal density in the posterior lateral left lower lung. This area can also be followed. 5. Mild hiatal hernia. ECG Data EKG Prior to Arrival: No Attestation: I personally reviewed and interpreted this ECG as follows: Interpretation: EKG reveals sinus tachycardia with a heart rate of 113. No ST elevations or depressions noted. Discharge Plan Discharge Disposition Patient Disposition: 30 Still Patient Discharge Condition Condition: Stable Discharge Details Diagnosis: Community acquired pneumonia, Acute exacerbation of chronic obstructive airways disease, SIRS (systemic inflammatory response syndrome) Physicians Team ED Provider: Matthew Tineo Primary Care Provider: Primary Care Yesenia Bower Rxs /Orders / Referrals /Forms Prescriptions: No Action metoprolol tartrate 25 mg Tablet 25 mg PO BID RF: 0 Spiriva with HandiHaler RF: 0 ipratropium-albuterol 0.5 mg-3 mg(2.5 mg base)/3 mL Solution For Nebulization 3 ml INHALATION QID RF: 0 enalapril maleate 5 mg Tablet 5 mg PO DAILY RF: 0 albuterol sulfate 90 mcg/actuation Hfa Aerosol Inhaler RF: 0 budesonide-formoterol [Symbicort] 80-4.5 mcg/actuation Hfa Aerosol Inhaler 2 puff INHALATION BID RF: 0 levothyroxine 100 mcg Capsule 100 mcg PO DAILY RF: 0 Status ED Status: Pending Admission
[2018-07-09] MEDS ORDERED: Acetaminophen 325 MG Tablet PO ONE (04:07)
[2018-07-09 04:25] LABS: Baso # (Auto) 0.1 th/mm3 (0.0-0.2); Eos # (Auto) 0.1 th/mm3 (0.0-0.4); Hematocrit 36.3 % (39.0-51.0); Hemoglobin 12.6 gm/dL (13.0-17.0); Lymph # (Auto) 0.8 th/mm3 (1.0-4.8); Lymph % (Auto) 7.2 % (9.0-44.0); Mean Corpuscular HGB Conc 34.7 % (32.0-36.0); Mean Corpuscular Hemoglobin 30.2 pg (27.0-34.0); Mean Corpuscular Volume 87.1 fL (80.0-100.0); Mean Platelet Volume 7.5 fL (7.0-11.0); Mono # (Auto) 1.1 th/mm3 (0.0-0.9); Mono % (Auto) 9.9 % (0.0-8.0); Neut # (Auto) 8.7 th/mm3 (1.8-7.7); Neut % (Auto) 80.9 % (16.0-70.0); Platelet Count 250 th/mm3 (150-450); Red Blood Count 4.17 mil/mm3 (4.50-5.90); Red Cell Distribution Width 13.2 % (11.6-17.2); White Blood Count 10.8 th/mm3 (4.0-11.0)
--- NOTE | 2018-07-09 04:39 | XR ---
EXAM DATE: 07/09/2018 3:56 AM EDT AGE/SEX: 78 years / Male INDICATIONS: Shortness of breath. CLINICAL DATA: This is the patient's initial encounter. Patient reports that signs and symptoms have been present for 1 day and indicates a pain score of 0/10. MEDICAL/SURGICAL HISTORY: Cardiovascular disease. Chronic obstructive pulmonary disease. Coron glo artery stent. COMPARISON: [facility] [place], CHEST 1V SINGLE AP, 05/05/2018. C, CHEST SINGLE AP, 02/23/2018. . FINDINGS: The heart size is normal. This increased density in the right upper lung. There some minimal increase d density at the lateral left base. The right lung is clear. CONCLUSION: Increased density in the right upper lung likely related to focal consolidation. There is also some m inimal consolidation or atelectasis at the left base. Electronically signed by: Macario Swenson MD 07/09/2018 4:38 AM EDT
[2018-07-09 04:47] LABS: Alanine Aminotransferase 15 U/L (12-78); Albumin 2.1 g/dL (3.4-5.0); Alkaline Phosphatase 53 U/L (45-117); Anion Gap 10 meq/L (5-15); Aspartate Aminotransferase 15 U/L (15-37); Blood Urea Nitrogen 8 mg/dL (7-18); Calcium 6.2 mg/dL (8.5-10.1); Carbon Dioxide 20.3 meq/L (21.0-32.0); Chloride 103 meq/L (98-107); Creatine Kinase 221 U/L (39-308); Glomerular Filtration Rate Greater Than 89 mL/min (>89); Glucose,Random 85 mg/dL (74-106); Magnesium 1.2 mg/dL (1.5-2.5); Potassium 3.2 meq/L (3.5-5.1); Sodium 133 meq/L (136-145); Total Protein 5.4 g/dL (6.4-8.2)
[2018-07-09] MEDS ORDERED: Mag Sulf 1 gm/100 ml Premix 100 ML IV.SIG ONE (05:03)
[2018-07-09] MEDS ORDERED: Azithromycin Inj 500 MG in Sodium Chlor 0.9% Inj 250 ML IV.SIG ONE (05:03)
[2018-07-09 05:10] LABS: Creatine Kinase MB 3.1 ng/mL (0.5-3.6)
[2018-07-09] MEDS ORDERED: Acetaminophen 325 MG Tablet PO PRN (05:42)
--- NOTE | 2018-07-09 05:47 | CT ---
EXAM DATE: 07/09/2018 5:03 AM EDT AGE/SEX: 78 years / Male INDICATIONS: Shortness of breath, tachycardia and hemoptysis. CLINICAL DATA: This is the patient's initial encounter. Patient reports that signs and symptoms have been present for 1 day and indicates a pain score of 2/10. MEDICAL/SURGICAL HISTORY: Cardiovascular disease. Chronic obstructive pulmonary disease. Hyperten tommy. Coronary artery stent. RADIATION DOSE: 9.44 CTDI (mGy) COMPARISON: [facility] [place]ST 1V SINGLE AP, 07/09/2018. . TECHNIQUE: Volumetric scanning was performed using a multi-row detector CT scanner during bolus infu tommy of 75 ml Omnipaque 350 (iohexol) nonionic water-soluble contrast as a single exam dose. The floyd a was post processed with a variety of visualization algorithms including full volume maximum intensi ty projection and sliding thin slab reformation. Using automated exposure control and adjustment of t he mA and/or kV according to patient size, radiation dose was kept as low as reasonably achievable to obtain optimal diagnostic quality images. DICOM format image data is available electronically for r eview and comparison. FINDINGS: Pulmonary Arteries: No filling defects are seen in the pulmonary arteries out to the subsegmental ve ssels. The left and right pulmonary arteries are normal in diameter. Lung: There is focal consolidation seen in the left upper lung. Underlying mass cannot be excluded. There is emphysematous change in the upper lungs.There is minimal increased focal density at the post erior lateral left lower lung. Effusion: None. Mediastinum: There are prominent lymph nodes seen throughout the mediastinum. The largest lymph node measures 1.8 cm and is seen in the left tracheobronchial region. Significant hilar adenopathy is not appreciated. Coronary artery calcifications are present. Other: The axilla is unremarkable. There is a mild hiatal hernia. CONCLUSION: 1. No pulmonary embolus. 2. Focal consolidation left upper lung. This is nonspecific. It may represent an area of pneumonia. An underlying mass cannot be excluded. It be recommended that patient be treated and a follow-up CT e xamination be obtained to demonstrate this completely resolves. This does not completely resolve, fur ther evaluate for underlying neoplasm could be performed. 3. Nonspecific prominent lymph nodes in the mediastinum. 4. Small focal density in the posterior lateral left lower lung. This area can also be followed. 5. Mild hiatal hernia. Electronically signed by: Macario Swenson MD 07/09/2018 5:46 AM EDT
[2018-07-09] MEDS ORDERED: Sodium Chloride 0.9% 2 ML Flush PRN IV.FLUSH (06:14)
[2018-07-09] MEDS: Heparin - SQ 10,000 UNITS/ML Vial SQ SCH ×2 (07:47→17:04)
--- NOTE | 2018-07-09 09:52 | ECG ---
Date Performed: 07/09/2018 Time Performed: 03:54:36 PTAGE: 78 years EKG: SINUS TACHYCARDIA ABNORMAL RHYTHM ECG Compared to prior electrocardiogram, Rate has increas ed and inferior injury has resolved. DOCTOR: Roge Bobo Interpretating Date/Time 07/09/2018 09:50:56
--- NOTE | 2018-07-09 10:07 | P.HP ---
History of Present Illness Service: Hospitalist Primary Care Physician: No Primary Care Physician Chief Complaint: Cough, shortness of breath History of Present Illness: Mr. Esparza is a pleasant 78-year-old male with a history of COPD, CAD, hypothyroidism who presents to the emergency department due to hemoptysis, worsening shortness of breath that started 2 days prior to this admission. Patient reports coughing up blood-tinged whitish sputum. He felt hot and cold but no documented fever. Patient follows up with [facility] and at home he takes albuterol as well as Symbicort for COPD. He is not on home oxygen. Patient reports significant decrease in his ambulation due to shortness of breath. Patient denies any chest pain, abdominal pain, changes in bladder or bowel habits. On arrival, heart rate 117, respiration 28, 97 200% oxygenation on 2 L of oxygen, 130/62 blood pressure. Sodium 133, potassium 3.2, calcium 6.2. Albumin corrected calcium 7.7, magnesium 1.2. Past medical history: CAD status post 2 episodes of ID. Last stent placed in 2003, COPD. Past surgical history: No significant surgical history. Social history: He quit smoking and drinking 8 years ago. He smoked for 45-50 years. Family history: Patient's mom at age 92, she had breast cancer. Dad at 77 and he had lung cancer. Inpatient Certification: I certify that the inpatient services were ordered in accordance with Medicare regulations governing the order. This includes certification that hospital inpatient services are reasonable and necessary and in the case of services not specified as inpatient-only under 42 CFR 419.22(n), that they are appropriately provided as inpatient services in accordance to with the 2-midnight benchmark under 43 CFR 412.3(e) Estimated Total Length of Stay (Days): 3 Plans for Post Hospital Care: Home Review of Systems All other systems reviewed negative except as stated in HPI PMFSH - History History Provided By: Patient, Lens Blank Gauger / EMT - Medical History Medical History: Medical History (Last Reviewed 07/09/18 @ 08:57 by Dejon Bains) Arthritis COPD (chronic obstructive pulmonary disease) GERD (gastroesophageal reflux disease) Heart attack Hypertension Hypothyroidism - Surgical History Surgical History: Surgical History (Last Reviewed 07/09/18 @ 08:57 by Dejon Bains) Hx of heart artery stent H/O heart artery stent - Tobacco History Second Hand Smoke Exposure: No Smoking Status: Former smoker Smoking End Date: Reportedly quit smoking 7 years ago - Alcohol History How Often Do You Have a Drink Containing Alcohol: Never - Substance Use History Substance History: No History of Abuse - Travel History Recent Travel in the [place] Within the Last 8 Weeks: No Recent Travel Out of the Country Within the Last 8 Weeks: No - Immunization History Tetanus Immunization: <5 Years Medications and Allergies Active Medications: Active Medications Acetaminophen (Tylenol) 650 mg PO Q4H PRN PRN Reason: Temp > 100.4 Albuterol (Duoneb Neb (Norberto)) 1 ampul NEB Q6HR WHILE AWAKE NEB NORBERTO Last Admin: 07/09/18 07:33 Dose: 1 ampul Heparin Sodium (Porcine) (Heparin Inj) 5,000 units SQ Q12H NORBERTO Last Admin: 07/09/18 07:47 Dose: 5,000 units Azithromycin 500 mg/ Sodium (Chloride) 250 mls @ 250 mls/hr IV.SIG Q24H NORBERTO Ceftriaxone Sodium 1,000 mg/ (Sodium Chloride) 100 mls @ 200 mls/hr IV.SIG Q24H NORBERTO Magnesium Sulfate/Dextrose (Magnesium Sulfate 1 Gm/D5w 100 Ml Premix) 100 mls @ 100 mls/hr IV.SIG Q1H NORBERTO Stop: 07/09/18 11:29 Ondansetron HCl (Zofran Inj) 4 mg IV.PUSH Q6H PRN PRN Reason: NAUSEA OR VOMITING Sodium Chloride (Ns Flush) 2 ml IV.FLUSH BID NORBERTO Sodium Chloride (Ns Flush) 2 ml IV.FLUSH PRN PRN PRN Reason: FLUSH AFTER USING IV ACCESS Allergies Allergy/AdvReac Type Severity Reaction Status Date / Time chlordiazepoxide Allergy Severe Chest Pain Verified 07/09/18 04:05 methocarbamol Allergy Severe Chest Pain Verified 07/09/18 04:05 penicillin G Allergy Severe Chest Pain Verified 07/09/18 04:05 Home Medications Medication Instructions Recorded Confirmed Type metoprolol tartrate 25 mg PO BID 05/05/18 07/09/18 History tiotropium bromide [Spiriva with 1 cap INHALATION DAILY #0 05/05/18 07/09/18 History HandiHaler] albuterol sulfate 90 mcg INHALATION QID 07/09/18 07/09/18 History budesonide-formoterol [Symbicort] 2 puff INHALATION BID 07/09/18 07/09/18 History enalapril maleate 5 mg PO DAILY 07/09/18 07/09/18 History ipratropium-albuterol 3 ml INHALATION QID 07/09/18 07/09/18 History levothyroxine 100 mcg PO DAILY 07/09/18 07/09/18 History Exam Vital signs: Vital Signs 07/09/18 03:54 07/09/18 04:01 07/09/18 04:17 Temperature 100.3 F H Pulse Rate 117 H 112 H Respiratory Rate 28 H 28 H Blood Pressure 174/81 H Pulse Oximetry 99 100 100 07/09/18 07:33 07/09/18 07:59 Temperature Pulse Rate 101 H 102 H Respiratory Rate 21 20 Blood Pressure 130/62 Pulse Oximetry 97 Intake & Output 07/08/18 07/09/18 07/09/18 18:59 06:59 18:59 Intake Total 450 / 450 Balance 450 / 450 Weight 78.471 kg Intake: IV 450 / 450 Azithromycin Inj 500 MG In NS 250 / 250 Inj 250 ML @ 250 mls/hr IV.SIG ONCE ONE Rx#:[id number] Magnesium Sulfate 1 gm/D5W 100 100 / 100 ml Premix 100 ML @ 100 mls/hr IV.SIG ONCE ONE Rx#:[id number] Rocephin Inj 1,000 MG In NS Inj 100 / 100 100 ML @ 200 mls/hr IV.SIG ONCE ONE Rx#:[id number] Narrative: GENERAL: This is a well-nourished, well-developed patient, in no apparent distress. SKIN: No rashes, ecchymoses or lesions. Warm and dry. HEAD: Atraumatic. Normocephalic. No temporal or scalp tenderness. EYES: Pupils equal round and reactive. No injection or drainage. ENT: Nose without bleeding, purulent drainage or septal hematoma. Airway patent. NECK: Trachea midline. No lymphadenopathy. Supple, nontender, no meningeal signs. CARDIOVASCULAR: Tachycardic without murmurs, gallops, or rubs. No JVD. RESPIRATORY: Moderate air entry, No appreciable wheezing (patient just receiving breathing treatment). GASTROINTESTINAL: Abdomen soft, non-tender, nondistended. No guarding. MUSCULOSKELETAL: Extremities without clubbing, cyanosis. trace edema present in lower ext. NEUROLOGICAL: Awake and alert. Cranial nerves II through XII intact. No focal neurological deficits. Normal speech. Results - Labs CBC & Chem 7: 07/09/18 04:10 07/09/18 04:00 Labs: Laboratory Results - last 24 hr 07/09/18 07/09/18 07/09/18 04:00 04:00 04:10 WBC 10.8 RBC 4.17 L Hgb 12.6 L Hct 36.3 L MCV 87.1 MCH 30.2 MCHC 34.7 RDW 13.2 Plt Count 250 MPV 7.5 Neut % (Auto) 80.9 H Lymph % (Auto) 7.2 L Atkinson % (Auto) 9.9 H Eos % (Auto) 1.0 Baso % (Auto) 1.0 Neut # (Auto) 8.7 H Lymph # (Auto) 0.8 L Atkinson # (Auto) 1.1 H Eos # (Auto) 0.1 Baso # (Auto) 0.1 WBC Differential . Differential Comment Auto diff final Sodium 133 L Potassium 3.2 L Chloride 103 Carbon Dioxide 20.3 L Anion Gap 10 BUN 8 Creatinine 0.67 Estimated GFR Greater than 89 Random Glucose 85 Lactic Acid Calcium 6.2 L* Prot Corrected Calcium 7.0 L* Magnesium 1.2 L Total Bilirubin 0.7 AST 15 ALT 15 Alkaline Phosphatase 53 Total Creatine Kinase 221 CK-MB (CK-2) 3.1 Troponin I Less than 0.02 L B-Natriuretic Peptide 52 Total Protein 5.4 L Albumin 2.1 L 07/09/18 04:10 WBC RBC Hgb Hct MCV MCH MCHC RDW Plt Count MPV Neut % (Auto) Lymph % (Auto) Atkinson % (Auto) Eos % (Auto) Baso % (Auto) Neut # (Auto) Lymph # (Auto) Atkinson # (Auto) Eos # (Auto) Baso # (Auto) WBC Differential Differential Comment Sodium Potassium Chloride Carbon Dioxide Anion Gap BUN Creatinine Estimated GFR Random Glucose Lactic Acid 1.0 Calcium Prot Corrected Calcium Magnesium Total Bilirubin AST ALT Alkaline Phosphatase Total Creatine Kinase CK-MB (CK-2) Troponin I B-Natriuretic Peptide Total Protein Albumin - Imaging Impressions Chest X-Ray 07/09/18 03:56 CONCLUSION: Increased density in the right upper lung likely related to focal consolidation. There is also some minimal consolidation or atelectasis at the left base. Chest CTA 07/09/18 04:33 CONCLUSION: 1. No pulmonary embolus. 2. Focal consolidation left upper lung. This is nonspecific. It may represent an area of pneumonia. An underlying mass cannot be excluded. It be recommended that patient be treated and a follow-up CT examination be obtained to demonstrate this completely resolves. This does not completely resolve, further evaluate for underlying neoplasm could be performed. 3. Nonspecific prominent lymph nodes in the mediastinum. 4. Small focal density in the posterior lateral left lower lung. This area can also be followed. 5. Mild hiatal hernia. Caprini VTE Risk Assessment Caprini VTE Risk Assessment: Moderate/High Risk (score >= 2) Caprini Risk Assessment Model: Point Value = 1 Point Value = 2 Point Value = 3 Point Value = 5 Age 41-60 Minor surgery BMI > 25 kg/m2 Swollen legs Varicose veins or History of unexplained or recurrent spontaneous Oral contraceptives or hormone replacement Sepsis (< 1 month) Serious lung disease, including pneumonia (< 1 month) Abnormal pulmonary function Acute myocardial infarction Congestive heart failure (< 1 month) History of inflammatory bowel disease Medical patient at bed rest Age 61-74 Arthroscopic surgery Major open surgery (> 45 min) Laparoscopic surgery (> 45 min) Malignancy Confined to bed (> 72 hours) Immobilizing plaster cast Central venous access Age >= 75 History of VTE Family history of VTE Factor V Leiden Prothrombin [id number] Lupus anticoagulant Anticardiolipin antibodies Elevated serum homocysteine Heparin-induced thrombocytopenia Other congenital or acquired thrombophilia Stroke (< 1 month) Elective arthroplasty Hip, pelvis, or leg fracture Acute spinal cord injury (< 1 month) Prophylaxis Regimen: Total Risk Factor Score Risk Level Prophylaxis Regimen 0-1 Low Early ambulation 2 Moderate Order ONE of the following: *Sequential Compression Device (SCD) *Heparin 5000 units SQ BID 3-4 Higher Order ONE of the following medications: *Heparin 5000 units SQ TID *Enoxaparin/Lovenox 40 mg SQ daily (WT < 150 kg, CrCl > 30 mL/min) *Enoxaparin/Lovenox 30 mg SQ daily (WT < 150 kg, CrCl > 10-29 mL/min) *Enoxaparin/Lovenox 30 mg SQ BID (WT < 150 kg, CrCl > 30 mL/min) AND/OR *Sequential Compression Device (SCD) 5 or more Highest Order ONE of the following medications: *Heparin 5000 units SQ TID (Preferred with Epidurals) *Enoxaparin/Lovenox 40 mg SQ daily (WT < 150 kg, CrCl > 30 mL/min) *Enoxaparin/Lovenox 30 mg SQ daily (WT < 150 kg, CrCl > 10-29 mL/min) *Enoxaparin/Lovenox 30 mg SQ BID (WT < 150 kg, CrCl > 30 mL/min) AND *Sequential Compression Device (SCD) Assessment and Plan - Plan Mr. Esparza is a pleasant 78-year-old male with a history of CAD, COPD and long history of smoking who presented to the emergency department due to shortness of breath, hemoptysis. Acute COPD exacerbation Left upper pneumonia Hemoptysis -CTA shows no PE but shows left upper lobe consolidation. -We consulted pulmonary due to hemoptysis. -Per pulmonary recommendation, patient is IV Solu-Medrol. -Continue DuoNeb, Spiriva, Symbicort -Patient received ceftriaxone 1 g and azithromycin 500 mg on 07/09/2018. -We will start Levaquin 750 mg daily starting 07/10/2018. -No further hemoptysis. Pulmonary will hold off on performing bronchoscopy at this point. -Supplemental O2 to keep O2 sat > 90% Coronary artery disease Hypertension Hypothyroidism -No acute issues. -Continue metoprolol 25 mg twice daily, levothyroxine 100 mcg p.o. daily, enalapril 5 mg p.o. daily. Hypokalemia - K+ 3.2 Hypocalcemia - Albumin corrected Calcium 7.7. Hypomagnesemia - Mg. 1.2 -We will replace with p.o. potassium as well as IV magnesium sulfate. Full code. Heparin SQ.
[2018-07-09] MEDS: Sodium Chloride 0.9% 2 ML Flush BID IV.FLUSH SCH ×2 (10:11→23:16)
[2018-07-09] MEDS: Mag Sulf 1 gm/100 ml Premix 100 ML IV.SIG SCH ×2 (10:11→11:16)
[2018-07-09] MEDS ORDERED: Influenza (Quadrivalent) Vaccine 0.5 ML Syringe IM ONE (11:30)
--- NOTE | 2018-07-09 13:02 | MB ---
cc: Mela Chen MD DATE: 07/09/2018 REASON FOR CONSULTATION: Chronic obstructive pulmonary disease and hemoptysis. HISTORY OF PRESENT ILLNESS: The patient is a 78-year-old male with past medical history of COPD, GERD, hypertension, coronary artery disease, and hypothyroidism. He presented to [facility] ED via EMS for shortness of breath and hemoptysis. He is being followed at the [facility] for his COPD. He reported hemoptysis 2 days ago twice a day, then stopped and started again yesterday. He states that whenever he coughs his mucus mixed with pink/red blood. Last episode was yesterday afternoon. He also reports chills and cold. He denies any fever or constitutional symptoms. The patient also reports wheezing. He denies any history of orthopnea, PND, or edema of lower extremities. The patient denies any hematemesis, weight loss, or changes in appetite. He denies any prior history of hemoptysis or any similar presentation. He is not on any oxygen at home; however, he uses nebulizers, albuterol inhaler, Symbicort, and Spiriva for his COPD. He quit smoking 8-1/2 years ago and has a 32-dckd-floz history of smoking. The patient denies any history of malignancy. Also, he denies any use of any blood thinners; however, he uses aspirin 81 mg daily. On arrival to the ER, he was tachycardic with a heart rate of 102-117 and tachypneic. A CTA of the chest was obtained, which showed no evidence of pulmonary embolism; however, it showed pneumonia in the left upper lobe. Nonspecific prominent lymph nodes in the mediastinum seen in addition to small focal density in the posterolateral left lower lung. In the ER, he was given Rocephin and azithromycin. Nasal washing screening for influenza is negative. He is currently on 2 liter oxygen with sats of 97% to 100%. PAST MEDICAL HISTORY: Significant for COPD, coronary artery disease, hypertension, GERD, hypothyroidism, arthritis. PAST SURGICAL HISTORY: Previous coronary stent placement. ALLERGIES: 1. PENICILLIN. 2. METHOCARBAMOL. SOCIAL HISTORY: Ex-smoker, quit smoking 8-1/2 years ago and has [id number]-egtz history of smoking. Nondrinker. FAMILY HISTORY: Father had lung cancer and emphysema, at age 77. Mother had breast cancer, at age 92. MEDICATIONS AT HOME: 1. Symbicort. 2. Spiriva. 3. Levothyroxine. 4. Metoprolol. 5. Albuterol. REVIEW OF SYSTEMS: As per HPI. The rest of the review of systems is unremarkable. PHYSICAL EXAMINATION: GENERAL: A 78-year-old male lying in bed in no acute distress. VITAL SIGNS: Temperature 100.3, pulse of 102, respiratory rate of 20, blood pressure 130/62, saturation of 97% on 2 liters of oxygen. HEENT: Atraumatic, normocephalic. Pupils are equal, round, reactive to light and accommodation. Extraocular muscles are intact. Conjunctivae are pink. Nonicteric sclerae. Oral mucosa within normal. NECK: Supple. No JVD, adenopathy, or thyromegaly. Trachea in the midline. CARDIOVASCULAR: Regular rate and rhythm. Normal S1, S2. No murmurs, rubs, or gallops noted. PULMONARY: Bilateral equal air entry with a few scattered wheezing. ABDOMEN: Soft, nontender. No distention. Positive bowel sounds. EXTREMITIES: No cyanosis, clubbing, nonpitting edema noted. NEUROLOGIC: No focal sensory deficit. LABORATORY DATA: WBC 10.8, hemoglobin 12.6, hematocrit 36, platelet count of 250. Sodium 133, potassium 3.2, chloride 103, CO2 20, BUN 8, creatinine 0.67. Lactic acid 1.0. Troponin less than 0.02. RADIOGRAPHIC STUDIES: A CTA of the chest showed no evidence of pulmonary embolism, showed a focal consolidation left upper lobe, probably pneumonia. IMPRESSION: 1. Respiratory insufficiency. 2. Left upper lobe pneumonia. 3. Chronic obstructive pulmonary disease exacerbation. 4. Hyponatremia and hypokalemia. 5. Hypertension. 6. Coronary artery disease. 7. Hypothyroidism. 8. Gastroesophageal reflux disease. RECOMMENDATIONS: 1. Continue with oxygen and maintain sats above 92%. 2. We will place her on bronchodilators in the form of DuoNeb every 4 hours plus every 2 hours p.r.n. for shortness of breath. 3. Resume home meds which include Symbicort 160/4.5 two puffs b.i.d. and Spiriva 1 capsule daily. 4. Start Solu-Medrol 60 mg IV every 8 hours. 5. BiPAP p.r.n. for respiratory distress. 6. Continue with antibiotics and monitor for signs of infection, which include fever and WBC. Follow up on blood cultures. His nasal washing screening for influenza is negative. We will obtain a sputum culture. 7. We will check strep pneumonia and legionella urinary antigen. 8. The patient presented with hemoptysis; however, last episode was yesterday afternoon. If there is any recurrence of hemoptysis, he will likely benefit from bronchoscopy. We will observe for now. 9 We will repeat a chest x-ray in a.m. 10. Continue other treatment plan per primary team. 11. Further recommendations will be based on hospital course. Thank you for this consultation and allowing us to participate in the patient's care. MD JAYA Scales/bogdan , 12:16 PM , 12:31 PM DINORAH
[2018-07-09] MEDS: Tiotropium Bromide 18 MCG/ACT Inhaler INH SCH (13:44)
[2018-07-09] MEDS: Budesonide-Formoterol 160/4.5 MCG 6 GM Inhaler INH SCH ×2 (13:44→23:16)
[2018-07-09] MEDS: MethylPREDNISolone Sod Succinate Inj 40 MG/ML Vial IV.PUSH SCH ×2 (13:45→23:15)
[2018-07-09] MEDS: Metoprolol Tartrate 25 MG Tablet PO SCH (23:15)
[2018-07-10] MEDS: Levothyroxine 100 MCG Tablet PO SCH (05:19)
[2018-07-10] MEDS: MethylPREDNISolone Sod Succinate Inj 40 MG/ML Vial IV.PUSH SCH ×3 (05:19→22:27)
[2018-07-10] MEDS: Heparin - SQ 10,000 UNITS/ML Vial SQ SCH (05:20)
[2018-07-10] MEDS ORDERED: Azithromycin Inj 500 MG in Sodium Chlor 0.9% Inj 250 ML IV.SIG SCH (06:00)
[2018-07-10] MEDS: Budesonide-Formoterol 160/4.5 MCG 6 GM Inhaler INH SCH ×2 (08:06→22:26)
[2018-07-10] MEDS: Metoprolol Tartrate 25 MG Tablet PO SCH ×2 (08:06→22:27)
[2018-07-10] MEDS: levoFLOXacin 750 MG Tablet PO SCH (08:06)
[2018-07-10] MEDS: Tiotropium Bromide 18 MCG/ACT Inhaler INH SCH (08:07)
[2018-07-10] MEDS: Sodium Chloride 0.9% 2 ML Flush BID IV.FLUSH SCH ×2 (08:07→22:27)
--- NOTE | 2018-07-10 08:35 | P.PN ---
Subjective Interval history: Follow-up for COPD exacerbation, left upper lobe pneumonia, hemoptysis. Patient is currently doing well. He is on room air. Denies any chest pain, shortness of breath, fever or chills. No further hemoptysis. Physical Exam Vital signs: Vital Signs 07/09/18 12:23 07/09/18 12:55 07/09/18 16:00 Temperature 97.8 F Pulse Rate 100 H 102 H 102 H Respiratory Rate 20 22 20 Blood Pressure 148/73 H 135/67 Pulse Oximetry 97 98 07/09/18 16:55 07/09/18 20:00 07/09/18 20:07 Temperature 96.5 F L Pulse Rate 105 H 98 H 102 H Respiratory Rate 20 18 18 Blood Pressure 121/58 L Pulse Oximetry 98 96 07/10/18 00:00 07/10/18 00:56 07/10/18 04:00 Temperature 98.0 F 97.8 F Pulse Rate 100 H 89 88 Respiratory Rate 19 19 18 Blood Pressure 123/66 119/64 Pulse Oximetry 97 97 99 07/10/18 04:24 07/10/18 08:00 07/10/18 08:15 Temperature Pulse Rate 78 71 Respiratory Rate 18 16 Blood Pressure Pulse Oximetry 97 97 Intake & Output 07/09/18 07/10/18 07/10/18 18:59 06:59 18:59 Intake Total 1370 / 1370 650 / 650 Balance 1370 / 1370 650 / 650 Weight 79.5 kg Intake: IV 650 / 650 Azithromycin Inj 500 MG In NS 250 / 250 Inj 250 ML @ 250 mls/hr IV.SIG ONCE ONE Rx#:[id number] Magnesium Sulfate 1 gm/D5W 100 300 / 300 ml Premix 100 ML @ 100 mls/hr IV.SIG Q1H [facility] Rx#:[id number] Rocephin Inj 1,000 MG In NS Inj 100 / 100 100 ML @ 200 mls/hr IV.SIG ONCE ONE Rx#:[id number] Oral 720 / 720 650 / 650 Other: # Voids 2 3 Date of Last Bowel Movement 07/09/18 07/09/18 # Bowel Movements 2 Narrative: GENERAL: This is a well-nourished, well-developed patient, in no apparent distress. SKIN: No rashes, ecchymoses or lesions. Warm and dry. HEAD: Atraumatic. Normocephalic. No temporal or scalp tenderness. EYES: Pupils equal round and reactive. No injection or drainage. ENT: Nose without bleeding, purulent drainage or septal hematoma. Airway patent. NECK: Trachea midline. No lymphadenopathy. Supple, nontender, no meningeal signs. CARDIOVASCULAR: Tachycardic without murmurs, gallops, or rubs. No JVD. RESPIRATORY: Moderate air entry, No appreciable wheezing (patient just receiving breathing treatment). GASTROINTESTINAL: Abdomen soft, non-tender, nondistended. No guarding. MUSCULOSKELETAL: Extremities without clubbing, cyanosis. trace edema present in lower ext. NEUROLOGICAL: Awake and alert. Cranial nerves II through XII intact. No focal neurological deficits. Normal speech. Results - Labs CBC & Chem 7: 07/10/18 08:26 07/10/18 08:26 Microbiology 07/09/18 14:09 Urine - Random Urine Streptococcus pneumoniae Antigen (M - Final Presumptive negative for streptococcus pneumoniae antigen, suggesting no current or recent infection. Infection due to Streptococcus pneumoniae cannot be ruled out since the antigen present in the sample may be below the detection limit of the test. 07/09/18 14:09 Urine - Random Urine Legionella Antigen - Final Presumptive negative for Legionella pneumophila serogroup 1 antigen in urine, suggesting no recent or recurrent infection. Infection due to Legionella cannot be ruled out since other serogroups and species may cause disease, antigen may not be present in urine in early infection, and the level of antigen present in the urine may be below the detection limit of the test. 07/09/18 04:26 Nasal Wash Influenza Types A,B Antigen - Final Negative for FLU A and B antigen Infection due to influenza A or B cannot be ruled out since the antigen present in the sample may be below the detection limit of the test. - Imaging Chest X-Ray 07/09/18 03:56 CONCLUSION: Increased density in the right upper lung likely related to focal consolidation. There is also some minimal consolidation or atelectasis at the left base. Chest CTA 07/09/18 04:33 CONCLUSION: 1. No pulmonary embolus. 2. Focal consolidation left upper lung. This is nonspecific. It may represent an area of pneumonia. An underlying mass cannot be excluded. It be recommended that patient be treated and a follow-up CT examination be obtained to demonstrate this completely resolves. This does not completely resolve, further evaluate for underlying neoplasm could be performed. 3. Nonspecific prominent lymph nodes in the mediastinum. 4. Small focal density in the posterior lateral left lower lung. This area can also be followed. 5. Mild hiatal hernia. Chest X-Ray 07/10/18 00:00 CONCLUSION: 1. Asymmetric density in the left upper lung was present previously and may represent infiltrate although a mass lesion cannot be excluded. Recommend follow -up film in one week to ensure resolution. If density persists, a noncontrasted CT scan of the chest should be performed for further characterization. 2. Improving atelectatic changes in the left lung base. Assessment and Plan - Plan Mr. Esparza is a pleasant 78-year-old male with a history of CAD, COPD and long history of smoking who presented to the emergency department due to shortness of breath, hemoptysis. Acute COPD exacerbation Left upper pneumonia Hemoptysis -CTA shows no PE but shows left upper lobe consolidation. -Appreciate pulmonary recommendations. -Per pulmonary recommendation, patient is IV Solu-Medrol. -Continue DuoNeb, Spiriva, Symbicort -Patient received ceftriaxone 1 g and azithromycin 500 mg on 07/09/2018. -We will continue Levaquin 750 mg daily. -Bronch planned for tomorrow 07/11/2018. -Supplemental O2 to keep O2 sat > 90% Coronary artery disease Hypertension Hypothyroidism -No acute issues. -Continue metoprolol 25 mg twice daily, levothyroxine 100 mcg p.o. daily, enalapril 5 mg p.o. daily. Hypokalemia - K+ 3.2 ==> 4.5. Resolved. Hypocalcemia - 8.4 today. Resolved. Hypomagnesemia - Mg. 1.2 --> 2.3. Resolved. -We replaced with p.o. potassium as well as IV magnesium sulfate. Full code. Heparin SQ. Discharge plan: Probable discharge in the next 24-48 hours.
[2018-07-10 08:44] LABS: Baso % (Auto) 0.2 % (0.0-2.0); Hemoglobin 12.9 gm/dL (13.0-17.0); Lymph # (Auto) 0.3 th/mm3 (1.0-4.8); Lymph % (Auto) 2.4 % (9.0-44.0); Mean Corpuscular HGB Conc 34.8 % (32.0-36.0); Mean Corpuscular Hemoglobin 30.3 pg (27.0-34.0); Mean Corpuscular Volume 87.1 fL (80.0-100.0); Mean Platelet Volume 7.4 fL (7.0-11.0); Mono # (Auto) 0.4 th/mm3 (0.0-0.9); Mono % (Auto) 3.1 % (0.0-8.0); Neut # (Auto) 13.6 th/mm3 (1.8-7.7); Neut % (Auto) 94.3 % (16.0-70.0); Platelet Count 301 th/mm3 (150-450); Red Blood Count 4.25 mil/mm3 (4.50-5.90); Red Cell Distribution Width 13.1 % (11.6-17.2); White Blood Count 14.4 th/mm3 (4.0-11.0)
--- NOTE | 2018-07-10 09:11 | XR ---
EXAM DATE: 07/10/2018 12:00 AM EDT AGE/SEX: 78 years / Male INDICATIONS: Evaluate for pneumonia. CLINICAL DATA: This is the patient's subsequent encounter. Patient reports that signs and symptoms h ave been present for 4 - 6 days and indicates a pain score of 0/10. MEDICAL/SURGICAL HISTORY: Cardiovascular disease. Chronic obstructive pulmonary disease. . Cor onary artery stent. COMPARISON: [facility] – [place] CHEST 1V SINGLE AP, 07/09/2018. . FINDINGS: A single AP view of the chest demonstrates the lungs to be symmetrically aerated . With some asymmetr ic density in the left upper lung projecting behind the anterior first rib. Minimal atelectatic law es above the left hemidiaphragm actually shows some interval improvement. The right lung is grossly c lear CONCLUSION: 1. Asymmetric density in the left upper lung was present previously and may represent infiltrate alt marvin a mass lesion cannot be excluded. Recommend follow-up film in one week to ensure resolution. If density persists, a noncontrasted CT scan of the chest should be performed for further characterizat ion. 2. Improving atelectatic changes in the left lung base. Electronically signed by: Isaias Oswald MD 07/10/2018 9:10 AM EDT
[2018-07-10 09:13] LABS: Calcium 8.4 mg/dL (8.5-10.1); Carbon Dioxide 25.8 meq/L (21.0-32.0); Magnesium 2.3 mg/dL (1.5-2.5); Potassium 4.5 meq/L (3.5-5.1)
--- NOTE | 2018-07-10 10:03 | P.PNPL ---
Subjective Interval history: No events overnight, patient denies any recurrent hemoptysis. Afebrile. Physical Exam Vital signs: Vital Signs 07/09/18 12:23 07/09/18 12:55 07/09/18 16:00 Temperature 97.8 F Pulse Rate 100 H 102 H 102 H Respiratory Rate 20 22 20 Blood Pressure 148/73 H 135/67 Pulse Oximetry 97 98 07/09/18 16:55 07/09/18 20:00 07/09/18 20:07 Temperature 96.5 F L Pulse Rate 105 H 98 H 102 H Respiratory Rate 20 18 18 Blood Pressure 121/58 L Pulse Oximetry 98 96 07/10/18 00:00 07/10/18 00:56 07/10/18 04:00 Temperature 98.0 F 97.8 F Pulse Rate 100 H 89 88 Respiratory Rate 19 19 18 Blood Pressure 123/66 119/64 Pulse Oximetry 97 97 99 07/10/18 04:24 07/10/18 08:00 07/10/18 08:15 Temperature 98 F Pulse Rate 78 93 H 71 Respiratory Rate 18 16 16 Blood Pressure 130/69 Pulse Oximetry 97 97 Intake & Output 07/09/18 07/10/18 07/10/18 18:59 06:59 18:59 Intake Total 1370 / 1370 650 / 650 Balance 1370 / 1370 650 / 650 Weight 79.5 kg Intake: IV 650 / 650 Azithromycin Inj 500 MG In NS 250 / 250 Inj 250 ML @ 250 mls/hr IV.SIG ONCE ONE Rx#:[id number] Magnesium Sulfate 1 gm/D5W 100 300 / 300 ml Premix 100 ML @ 100 mls/hr IV.SIG Q1H [facility] Rx#:[id number] Rocephin Inj 1,000 MG In NS Inj 100 / 100 100 ML @ 200 mls/hr IV.SIG ONCE ONE Rx#:[id number] Oral 720 / 720 650 / 650 Other: # Voids 2 3 Date of Last Bowel Movement 07/09/18 07/09/18 # Bowel Movements 2 - Constitutional no acute distress - Routine HEENT Exam Head: Present: normocephalic, atraumatic Eye: Present: EOMI, PERRL, normal accommodation ENT: Present: mucous membranes moist, mucous membranes dry - Routine Neck Exam Present: supple, full ROM, trachea midline - Routine Respiratory Exam Present: wheezes - Routine Cardiovascular Exam Present: RRR, S1, S2 - Routine Abdominal Exam Present: soft, normoactive bowel sounds - Routine Extremities Exam Present: full ROM, pulses intact - Routine Skin Exam Present: intact, dry - Routine Neurological Exam Present: alert, oriented X3, CN II-XII intact Assessment and Plan - Plan 1. Respiratory insufficiency. 2. Left upper lobe pneumonia. 3. Chronic obstructive pulmonary disease exacerbation. 4. Hyponatremia and hypokalemia. 5. Hypertension. 6. Coronary artery disease. 7. Hypothyroidism. 8. Gastroesophageal reflux disease. Plan Continue with oxygen and maintain sats above 92%. Bronchodilators (Duoneb, Symbicort and Spiriva) Continue Solumederol 60mg Q8 BiPAP p.r.n. for respiratory distress. Continue abx( Levaquin) and monitor for signs of infection, Follow up on blood cultures 07/09: NGTD. 07/10 Sputum cx: Pending Nasal washing screening for influenza, strep pneumonia and legionella urinary antigen all negative CXR today showed asymmetry density FELIBERTO mass can not be excluded will schedule for bronch tomorrow. NPO after midnight, place on D5NS@50ml/hr Check echo to eval LV function and r/o pulm HTN 2nd COPD Asses for home oxygen prior to discharge Continue treatment plan, hold Heparin SQ.
[2018-07-10] MEDS ORDERED: Dextrose 5%/NaCl 0.9% Inj 1,000 ML IV.CONT SCH (10:15)
--- NOTE | 2018-07-10 13:23 | ECHRPT ---
Indication: SHORTNESS OF BREATH CONCLUSIONS Technically difficult study with limited echocardiographic window visualization. Mild concentric left ventricular hypertrophy. Normal left ventricular size. The left ventricular systolic function is normal with an estimated ejection fraction in the range of 60-65% [id number] mitral valve regurgitation. There is mild tricuspid valve regurgitation. The estimated pulmonary arterial pressure is 32 mmHg. BP: / HR: Rhythm: MEASUREMENTS (Male / Female) Normal Values Technical Quality: 2D ECHO LV Diastolic Diameter PLAX 3.9 cm 4.2 - 5.9 / 3.9 - 5.3 cm LV Systolic Diameter PLAX 3.2 cm IVS Diastolic Thickness 1.1 cm 0.6 - 1.0 / 0.6 - 0.9 cm LVPW Diastolic Thickness 1.4 cm 0.6 - 1.0 / 0.6 - 0.9 cm LV Relative Wall Thickness 0.6 RV Internal Dim ED PLAX 2.7 cm LVOT Diameter 1.7 cm Aortic Root Diameter 2.3 cm LA Systolic Diameter LX 3.4 cm 3.0 - 4.0 / 2.7 - 3.8 cm LV Ejection Fraction MOD BP 59.4 % >= 55 % LV Ejection Fraction MOD 4C 58.8 % LV Ejection Fraction 4C AL 60.8 % LV Ejection Fraction MOD 2C 59.1 % LV Ejection Fraction 2C AL 61.0 % M-MODE Aortic Root Diameter MM 3.4 cm LA Systolic Diameter MM 3.7 cm LA Ao Ratio MM 1.1 AV Cusp Separation MM 2.3 cm DOPPLER AV Peak Velocity 111.0 cm/s AV Peak Gradient 4.9 mmHg LVOT Peak Velocity 98.2 cm/s LVOT Peak Gradient 3.9 mmHg AV Area Cont Eq pk 2.0 cm Mitral E Point Velocity 66.1 cm/s Mitral A Point Velocity 99.2 cm/s Mitral E to A Ratio 0.7 LV E' Lateral Velocity 11.4 cm/s Mitral E to LV E' Lateral Ratio 5.8 LV E' Septal Velocity 8.9 cm/s Mitral E to LV E' Septal Ratio 7.5 TR Peak Velocity 235.0 cm/s TR Peak Gradient 22.1 mmHg Right Atrial Pressure 10.0 mmHg Pulmonary Artery Systolic Pressu 32.1 mmHg Right Ventricular Systolic Press 32.1 mmHg PV Peak Velocity 123.0 cm/s PV Peak Gradient 6.1 mmHg FINDINGS LEFT VENTRICLE Mild concentric left ventricular hypertrophy. Normal left ventricular size. The left ventricular systolic function is normal with an estimated ejection fraction in the range of 60-65%. No regional wall motion abnormalities are present. RIGHT VENTRICLE Normal right ventricular size and systolic function. LEFT ATRIUM The left atrial size is normal. RIGHT ATRIUM The right atrial size is normal. ATRIAL SEPTUM Normal atrial septal thickness without atrial level shunting by limited color doppler interrogation. AORTA The aortic root and proximal ascending aorta are normal in size on limited imaging. MITRAL VALVE Mild thickening of the mitral valve leaflets. Szvqe-rb-mjqo mitral valve regurgitation. AORTIC VALVE Trileaflet aortic valve. No aortic valve stenosis or regurgitation. TRICUSPID VALVE There is mild tricuspid valve regurgitation. The estimated pulmonary arterial pressure is 32 mmHg. PULMONARY VALVE No pulmonary valve regurgitation or stenosis. VESSELS The inferior vena cava is normal in size. PERICARDIUM No pericardial effusion. Jarett Medina (Electronically Signed) Final Date:10 July 2018 13:21
[2018-07-10] MEDS ORDERED: clonazePAM 0.5 MG Tablet PO PRN (19:41)
[2018-07-10] MEDS ORDERED: Morphine Sulfate Inj 2 MG/ML Vial IV.PUSH ONE (19:45)
[2018-07-11] MEDS ORDERED: Dextrose 5%/NaCl 0.9% Inj 1,000 ML IV.CONT SCH
[2018-07-11] MEDS: MethylPREDNISolone Sod Succinate Inj 40 MG/ML Vial IV.PUSH SCH ×3 (06:09→21:43)
[2018-07-11] MEDS: Levothyroxine 100 MCG Tablet PO SCH (06:09)
[2018-07-11 08:09] LABS: Baso % (Auto) 0.1 % (0.0-2.0); Hemoglobin 12.4 gm/dL (13.0-17.0); Lymph # (Auto) 0.4 th/mm3 (1.0-4.8); Lymph % (Auto) 2.5 % (9.0-44.0); Mean Corpuscular HGB Conc 32.6 % (32.0-36.0); Mean Corpuscular Hemoglobin 29.2 pg (27.0-34.0); Mean Corpuscular Volume 89.6 fL (80.0-100.0); Mean Platelet Volume 8.3 fL (7.0-11.0); Mono # (Auto) 0.3 th/mm3 (0.0-0.9); Mono % (Auto) 1.8 % (0.0-8.0); Neut # (Auto) 14.4 th/mm3 (1.8-7.7); Neut % (Auto) 95.6 % (16.0-70.0); Platelet Count 333 th/mm3 (150-450); Red Blood Count 4.24 mil/mm3 (4.50-5.90); Red Cell Distribution Width 13.4 % (11.6-17.2); White Blood Count 15.1 th/mm3 (4.0-11.0)
[2018-07-11 08:13] LABS: INR 1.1 Ratio; Prothrombin Time 11.3 sec (9.8-11.6)
[2018-07-11 08:31] LABS: Albumin 2.4 g/dL (3.4-5.0); Anion Gap 8 meq/L (5-15); Aspartate Aminotransferase 19 U/L (15-37); Blood Urea Nitrogen 13 mg/dL (7-18); Calcium 8.4 mg/dL (8.5-10.1); Carbon Dioxide 24.9 meq/L (21.0-32.0); Chloride 100 meq/L (98-107); Glomerular Filtration Rate Greater Than 89 mL/min (>89); Glucose,Random 135 mg/dL (74-106); Potassium 4.8 meq/L (3.5-5.1); Sodium 133 meq/L (136-145)
[2018-07-11 08:32] LABS: Alanine Aminotransferase 27 U/L (12-78)
[2018-07-11] MEDS ORDERED: Lidocaine PF 1% Inj 5 ML Syringe OTHER ONE (08:32)
[2018-07-11 08:34] LABS: Alkaline Phosphatase 60 U/L (45-117); Total Protein 6.6 g/dL (6.4-8.2)
--- NOTE | 2018-07-11 09:20 | P.PNPL ---
Subjective Interval history: Patient is awake and alert s/p bronch this morning, afebrile. Physical Exam Vital signs: Vital Signs 07/10/18 12:00 07/10/18 12:24 07/10/18 16:00 Temperature 97.9 F 97.4 F L Pulse Rate 83 92 H 100 H Respiratory Rate 16 18 18 Blood Pressure 128/63 130/90 Pulse Oximetry 96 96 07/10/18 16:37 07/10/18 18:27 07/10/18 20:00 Temperature 97.6 F Pulse Rate 95 H 101 H 106 H Respiratory Rate 16 20 22 Blood Pressure 136/63 Pulse Oximetry 96 07/10/18 20:55 07/11/18 00:00 07/11/18 00:09 Temperature 97.6 F Pulse Rate 97 H 91 H 70 Respiratory Rate 18 22 18 Blood Pressure 135/77 Pulse Oximetry 97 96 07/11/18 04:00 07/11/18 04:02 07/11/18 07:59 Temperature 97.5 F L Pulse Rate 84 77 93 H Respiratory Rate 22 18 16 Blood Pressure 138/76 Pulse Oximetry 98 98 07/11/18 08:00 Temperature 97.7 F Pulse Rate 91 H Respiratory Rate 18 Blood Pressure 139/74 Pulse Oximetry 95 Intake & Output 07/10/18 07/11/18 07/11/18 18:59 06:59 18:59 Intake Total 960 / 960 Balance 960 / 960 Weight 79.3 kg Intake: Oral 960 / 960 Other: # Voids 5 Date of Last Bowel Movement 07/09/18 - Constitutional no acute distress - Routine HEENT Exam Head: Present: normocephalic, atraumatic Eye: Present: EOMI, PERRL, normal accommodation, conjunctivae pink ENT: Present: mucous membranes moist - Routine Neck Exam Present: supple, full ROM, trachea midline - Routine Respiratory Exam Present: wheezes - Routine Cardiovascular Exam Present: RRR, S1, S2 - Routine Abdominal Exam Present: soft, normoactive bowel sounds - Routine Skin Exam Present: intact, dry - Routine Neurological Exam Present: alert, oriented X3, CN II-XII intact Assessment and Plan - Plan 1. Respiratory insufficiency. 2. Left upper lobe pneumonia. 3. Chronic obstructive pulmonary disease exacerbation. 4. Hyponatremia and hypokalemia. 5. Hypertension. 6. Coronary artery disease. 7. Hypothyroidism. 8. Gastroesophageal reflux disease. Plan Continue with oxygen and maintain sats above 92%. Bronchodilators (Duoneb, Symbicort and Spiriva) Continue Solumederol 60mg Q8 BiPAP p.r.n. for respiratory distress. Continue abx( Levaquin) and monitor for signs of infection, Follow up on blood cultures 07/09: NGTD. 07/10 Sputum cx: Pending Nasal washing screening for influenza, strep pneumonia and legionella urinary antigen all negative CXR 07/10 showed asymmetry density FELIBERTO mass can not be excluded s/p bronch this morning showed thick secretions b/l suctioned to clear, no evidence of EBL or bleeding, BAL performed FELIBERTO, RLL, follow up on BAL micro/cytology. Check CXR post bronch Echo showed EF 60-65%, PAP 32mmHg Asses for home oxygen prior to discharge Continue treatment plan
[2018-07-11] MEDS ORDERED: *Meperidine Inj 25 MG/ML Vial PERIprocedural Use ONLY ONE (09:27)
--- NOTE | 2018-07-11 09:58 | XR ---
EXAM DATE: 07/11/2018 9:45 AM EDT AGE/SEX: 78 years / Male INDICATIONS: Shortness of breath. CLINICAL DATA: This is the patient's subsequent encounter. Patient reports that signs and symptoms h ave been present for 1 day and indicates a pain score of 4/10. MEDICAL/SURGICAL HISTORY: Chronic obstructive pulmonary disease. Pneumonia, SIRS, COPD exacerba tion, bronchitis. . Post Bronchoscopy COMPARISON: [facility] – [place], CHEST 1V SINGLE AP, 07/10/2018. . FINDINGS: A single AP view of the chest demonstrates the lungs to be symmetrically aerated without evidence of mass, infiltrate or effusion. Minimal basilar atelectasis. The cardiomediastinal contours are unrema rkable. Osseous structures are intact. CONCLUSION: Minimal basilar atelectasis. No significant effusion. Electronically signed by: Ministerio Dobbs MD 07/11/2018 9:57 AM EDT
[2018-07-11] MEDS: Tiotropium Bromide 18 MCG/ACT Inhaler INH SCH (10:43)
[2018-07-11] MEDS: levoFLOXacin 750 MG Tablet PO SCH (10:44)
[2018-07-11] MEDS: Metoprolol Tartrate 25 MG Tablet PO SCH ×2 (10:44→20:04)
[2018-07-11] MEDS: Budesonide-Formoterol 160/4.5 MCG 6 GM Inhaler INH SCH ×2 (10:44→20:05)
[2018-07-11] MEDS: Sodium Chloride 0.9% 2 ML Flush BID IV.FLUSH SCH ×2 (10:44→20:05)
--- NOTE | 2018-07-11 15:37 | P.PN ---
Subjective Interval history: Follow-up for COPD exacerbation, left upper lobe pneumonia, hemoptysis. Patient returned from bronchoscopy. It is currently lying in bed, on room air. He does get short of breath with short distance walking. However he does not want to do walk test because previously he reports that he always passes walk test. No fever or chills. Daughter is at bedside. Physical Exam Vital signs: Vital Signs 07/10/18 16:00 07/10/18 16:37 07/10/18 18:27 Temperature 97.4 F L Pulse Rate 100 H 95 H 101 H Respiratory Rate 18 16 20 Blood Pressure 130/90 Pulse Oximetry 96 07/10/18 20:00 07/10/18 20:55 07/11/18 00:00 Temperature 97.6 F 97.6 F Pulse Rate 106 H 97 H 91 H Respiratory Rate 22 18 22 Blood Pressure 136/63 135/77 Pulse Oximetry 96 97 96 07/11/18 00:09 07/11/18 04:00 07/11/18 04:02 Temperature 97.5 F L Pulse Rate 70 84 77 Respiratory Rate 18 22 18 Blood Pressure 138/76 Pulse Oximetry 98 07/11/18 07:59 07/11/18 08:00 07/11/18 09:10 Temperature 97.7 F Pulse Rate 93 H 91 H 90 Respiratory Rate 16 18 20 Blood Pressure 139/74 Pulse Oximetry 98 99 07/11/18 09:13 07/11/18 09:30 07/11/18 09:45 Temperature 97.7 F Pulse Rate 107 H 102 H 102 H Respiratory Rate 22 22 22 Blood Pressure 128/76 145/69 H 119/61 Pulse Oximetry 98 98 98 07/11/18 10:00 07/11/18 11:44 07/11/18 11:45 Temperature 97.7 F 98.5 F Pulse Rate 104 H 98 H 89 Respiratory Rate 22 20 16 Blood Pressure 144/72 H 136/67 Pulse Oximetry 98 95 Intake & Output 07/10/18 07/11/18 07/11/18 18:59 06:59 18:59 Intake Total 960 / 960 200 / 200 Balance 960 / 960 200 / 200 Weight 79.3 kg Intake: IV 200 / 200 D5W/Normal Saline Inj 1,000 ML 200 / 200 @ 50 mls/hr IV.CONT .Q20H [facility] Rx#:[id number] Oral 960 / 960 Other: # Voids 5 Date of Last Bowel Movement 07/09/18 07/09/18 Narrative: GENERAL: This is a well-nourished, well-developed patient, in no apparent distress. SKIN: No rashes, ecchymoses or lesions. Warm and dry. HEAD: Atraumatic. Normocephalic. No temporal or scalp tenderness. EYES: Pupils equal round and reactive. No injection or drainage. ENT: Nose without bleeding, purulent drainage or septal hematoma. Airway patent. NECK: Trachea midline. No lymphadenopathy. Supple, nontender, no meningeal signs. CARDIOVASCULAR: Tachycardic without murmurs, gallops, or rubs. No JVD. RESPIRATORY: Moderate air entry. Diffuse wheezing throughout the lung ellis. GASTROINTESTINAL: Abdomen soft, non-tender, nondistended. No guarding. MUSCULOSKELETAL: Extremities without clubbing, cyanosis. trace edema present in lower ext. NEUROLOGICAL: Awake and alert. Cranial nerves II through XII intact. No focal neurological deficits. Normal speech. Results - Labs CBC & Chem 7: 07/11/18 06:00 07/11/18 06:00 Laboratory Results - last 24 hr 07/10/18 07/11/18 07/11/18 18:37 06:00 06:00 WBC 15.1 H RBC 4.24 L Hgb 12.4 L Hct 38.0 L MCV 89.6 MCH 29.2 MCHC 32.6 RDW 13.4 Plt Count 333 MPV 8.3 Neut % (Auto) 95.6 H Lymph % (Auto) 2.5 L [place] % (Auto) 1.8 Eos % (Auto) 0.0 Baso % (Auto) 0.1 Neut # (Auto) 14.4 H Lymph # (Auto) 0.4 L [place] # (Auto) 0.3 Eos # (Auto) 0.0 Baso # (Auto) 0.0 WBC Differential . Differential Comment Auto diff final PT 11.3 INR 1.1 Sodium Potassium Chloride Carbon Dioxide Anion Gap BUN Creatinine Estimated GFR POC Glucose 138 H Random Glucose Calcium Total Bilirubin AST ALT Alkaline Phosphatase Total Protein Albumin 07/11/18 07/11/18 06:00 06:05 WBC RBC Hgb Hct MCV MCH MCHC RDW Plt Count MPV Neut % (Auto) Lymph % (Auto) [place] % (Auto) Eos % (Auto) Baso % (Auto) Neut # (Auto) Lymph # (Auto) [place] # (Auto) Eos # (Auto) Baso # (Auto) WBC Differential Differential Comment PT INR Sodium 133 L Potassium 4.8 Chloride 100 Carbon Dioxide 24.9 Anion Gap 8 BUN 13 Creatinine 0.77 Estimated GFR Greater than 89 POC Glucose 134 H Random Glucose 135 H Calcium 8.4 L Total Bilirubin 0.2 AST 19 ALT 27 Alkaline Phosphatase 60 Total Protein 6.6 D Albumin 2.4 L Microbiology 07/11/18 08:49 Bronchial Washings - Left Upper Lobe Acid Fast Bacilli Smear - Final No acid fast bacilli seen 07/11/18 08:49 Bronchial - Right Lower Lobe Gram Stain - Final 07/11/18 08:49 Bronchial - Left Upper Lobe Gram Stain - Final 07/11/18 08:49 Bronchial Washings - Right Lower Lobe Fungal Smear - Final No fungal elements seen 07/10/18 08:50 Sputum - Expectorated Sputum Gram Stain - Final 07/10/18 08:50 Sputum - Expectorated Sputum Sputum Culture - Preliminary Light growth normal respiratory checo at 24 hours 07/09/18 04:10 Blood - Peripheral Aerobic Blood Culture - Preliminary No growth in 2 days 07/09/18 04:10 Blood - Peripheral Anaerobic Blood Culture - Preliminary No growth in 2 days 07/09/18 04:00 Blood - Peripheral Aerobic Blood Culture - Preliminary No growth in 2 days 07/09/18 04:00 Blood - Peripheral Anaerobic Blood Culture - Preliminary No growth in 2 days - Imaging Impressions Chest X-Ray 07/11/18 09:02 CONCLUSION: Minimal basilar atelectasis. No significant effusion. - Procedures Echo 07/10/2018 Technically difficult study with limited echocardiographic window visualization. Mild concentric left ventricular hypertrophy. Normal left ventricular size. The left ventricular systolic function is normal with an estimated ejection fraction in the range of 60-65% Ggcuy-xe-jsob mitral valve regurgitation. There is mild tricuspid valve regurgitation. The estimated pulmonary arterial pressure is 32 mmHg. 07/11/2019 Bronchoscopy. Assessment and Plan - Plan Mr. Esparza is a pleasant 78-year-old male with a history of CAD, COPD and long history of smoking who presented to the emergency department due to shortness of breath, hemoptysis. Acute COPD exacerbation Left upper pneumonia Hemoptysis -CTA shows no PE but shows left upper lobe consolidation. -Appreciate pulmonary recommendations. Pt is s/p Bronchoscopy. -Per pulmonary recommendation, patient is on IV Solu-Medrol 60mg Q8hrs. -Continue DuoNeb, Spiriva, Symbicort -continue Levaquin 750 mg daily. -Supplemental O2 to keep O2 sat > 90% Coronary artery disease Hypertension Hypothyroidism -No acute issues. -Continue metoprolol 25 mg twice daily, levothyroxine 100 mcg p.o. daily, enalapril 5 mg p.o. daily. Hypokalemia - K+ 3.2 ==> 4.8. Resolved. Hypocalcemia - 8.4 today. Resolved. Hypomagnesemia - Mg. 1.2 --> 2.3. Resolved. -We replaced with p.o. potassium as well as IV magnesium sulfate. Full code. Heparin SQ. Discharge plan: Probable discharge over the weekend.
[2018-07-12] MEDS: MethylPREDNISolone Sod Succinate Inj 40 MG/ML Vial IV.PUSH SCH (05:05)
[2018-07-12] MEDS: Levothyroxine 100 MCG Tablet PO SCH (05:05)
[2018-07-12] MEDS: Sodium Chloride 0.9% 2 ML Flush BID IV.FLUSH SCH (09:10)
[2018-07-12] MEDS: levoFLOXacin 750 MG Tablet PO SCH (09:10)
[2018-07-12] MEDS: Metoprolol Tartrate 25 MG Tablet PO SCH (09:10)
[2018-07-12] MEDS: Tiotropium Bromide 18 MCG/ACT Inhaler INH SCH (09:13)
[2018-07-12] MEDS: Budesonide-Formoterol 160/4.5 MCG 6 GM Inhaler INH SCH (09:13)
--- NOTE | 2018-07-12 11:37 | P.PNPL ---
Subjective Interval history: Patient is lying in bed in [facility]. Physical Exam Vital signs: Vital Signs 07/11/18 11:44 07/11/18 11:45 07/11/18 16:00 Temperature 98.5 F 97.1 F L Pulse Rate 98 H 89 95 H Respiratory Rate 20 16 18 Blood Pressure 136/67 156/74 H Pulse Oximetry 95 95 07/11/18 17:23 07/11/18 19:17 07/11/18 19:18 Temperature Pulse Rate 94 H 94 H Respiratory Rate 18 18 Blood Pressure Pulse Oximetry 96 07/12/18 00:00 07/12/18 00:33 07/12/18 04:00 Temperature 97.2 F L 97.5 F L Pulse Rate 92 H 89 93 H Respiratory Rate 18 20 18 Blood Pressure 115/74 105/84 Pulse Oximetry 94 L 93 L 07/12/18 08:00 07/12/18 08:33 Temperature 97.2 F L Pulse Rate 88 93 H Respiratory Rate 18 16 Blood Pressure 138/89 Pulse Oximetry 97 96 Intake & Output 07/11/18 07/12/18 07/12/18 18:59 06:59 18:59 Intake Total 680 / 680 120 / 120 Output Total 200 / 200 Balance 480 / 480 120 / 120 Weight 79.9 kg Intake: IV 200 / 200 D5W/Normal Saline Inj 1,000 ML 200 / 200 @ 50 mls/hr IV.CONT .Q20H [facility] Rx#:[id number] Oral 480 / 480 120 / 120 Output: Urine 200 / 200 Other: # Voids 2 Date of Last Bowel Movement 07/09/18 07/09/18 - Constitutional no acute distress - Routine HEENT Exam Head: Present: normocephalic, atraumatic Eye: Present: EOMI, PERRL, normal accommodation, conjunctivae pink - Routine Neck Exam Present: supple, full ROM, trachea midline - Routine Respiratory Exam Present: wheezes - Routine Cardiovascular Exam Present: RRR, S1, S2 - Routine Abdominal Exam Present: soft, normoactive bowel sounds - Routine Extremities Exam Present: full ROM, pulses intact - Routine Skin Exam Present: intact, dry - Routine Neurological Exam Present: alert, oriented X3, CN II-XII intact Assessment and Plan - Plan 1. Respiratory insufficiency. 2. Left upper lobe pneumonia. 3. Chronic obstructive pulmonary disease exacerbation. 4. Hyponatremia and hypokalemia. 5. Hypertension. 6. Coronary artery disease. 7. Hypothyroidism. 8. Gastroesophageal reflux disease. Plan Oxygen PRN maintain sats above 92%. Bronchodilators (Duoneb, Symbicort and Spiriva) Decrease Solumederol 40mg Q12 BiPAP p.r.n. for respiratory distress. Continue abx( Levaquin) and monitor for signs of infection, Follow up on blood cultures 07/09: NGTD. 07/10 Sputum cx: nl resp checo Nasal washing screening for influenza, strep pneumonia and legionella urinary antigen all negative CXR 07/10 showed asymmetry density FELIBERTO mass can not be excluded s/p bronch 07/11 showed thick secretions b/l suctioned to clear, no evidence of EBL or bleeding, BAL performed FELIBERTO, RLL, follow up on BAL micro/cytology. CXR post bronch: Minimal basilar atelectasis Echo showed EF 60-65%, PAP 32mmHg Asses for home oxygen prior to discharge Continue treatment plan
--- NOTE | 2018-07-12 12:56 | P.DS ---
Date of admission: 07/09/18 07:01 Primary care physician: No Primary Care Physician Brief History from admission: Mr. Esparza is a pleasant 78-year-old male with a history of COPD, CAD, hypothyroidism who presents to the emergency department due to hemoptysis, worsening shortness of breath that started 2 days prior to this admission. Patient reports coughing up blood-tinged whitish sputum. He felt hot and cold but no documented fever. Patient follows up with [facility] and at home he takes albuterol as well as Symbicort for COPD. He is not on home oxygen. Patient reports significant decrease in his ambulation due to shortness of breath. Patient denies any chest pain, abdominal pain, changes in bladder or bowel habits. On arrival, heart rate 117, respiration 28, 97 % oxygenation on 2 L of oxygen, 130/62 blood pressure. Sodium 133, potassium 3.2, calcium 6.2. Albumin corrected calcium 7.7, magnesium 1.2. Past medical history: CAD status post 2 episodes of FL. Last stent placed in 2003, COPD. Past surgical history: No significant surgical history. Social history: He quit smoking and drinking 8 years ago. He smoked for 45-50 years. Family history: Patient's mom at age 92, she had breast cancer. Dad at 77 and he had lung cancer. DS: Medications - Discharge Medications Prescriptions: hydroxyzine HCl 50 mg PO Q6HR PRN #30 tab PRN Reason: Anxiety prednisone See Label Instructions .ROUTE .COMPLEX #40 tab DS: Summary Hospital Course: Patient was admitted, started on steroids and antibiotics. Pulmonology was consulted perform bronchoscopy with clearing of mucous plugs, cultures were sent which have been no growth to date so far. Patient was tolerating well on room air with no further hemoptysis, says his dyspnea returned to baseline. Pro -calcitonin was negative, antibiotics were discontinued. Patient has met maximal benefit from hospitalization is clinically stable for discharge with a steroid taper. - Time Spent with Patient Total time spent providing and/or coordinating discharge services: Less than 30 minutes - Quality: VTE Deep Vein Thrombosis/Pulmonary Embolism Present on Admission: No Exam Vital signs: Vital Signs 07/11/18 16:00 07/11/18 17:23 07/11/18 19:17 Temperature 97.1 F L Pulse Rate 95 H 94 H 94 H Respiratory Rate 18 18 18 Blood Pressure 156/74 H Pulse Oximetry 95 07/11/18 19:18 07/12/18 00:00 07/12/18 00:33 Temperature 97.2 F L Pulse Rate 92 H 89 Respiratory Rate 18 20 Blood Pressure 115/74 Pulse Oximetry 96 94 L 07/12/18 04:00 07/12/18 08:00 07/12/18 08:33 Temperature 97.5 F L 97.2 F L Pulse Rate 93 H 88 93 H Respiratory Rate 18 18 16 Blood Pressure 105/84 138/89 Pulse Oximetry 93 L 97 96 07/12/18 11:49 07/12/18 12:07 Temperature Pulse Rate 93 H 98 H Respiratory Rate 16 Blood Pressure Pulse Oximetry Intake & Output 07/11/18 07/12/18 07/12/18 18:59 06:59 18:59 Intake Total 680 / 680 120 / 120 Output Total 200 / 200 Balance 480 / 480 120 / 120 Weight 79.9 kg Intake: IV 200 / 200 D5W/Normal Saline Inj 1,000 ML 200 / 200 @ 50 mls/hr IV.CONT .Q20H [facility]1983 Rx#:[id number] Oral 480 / 480 120 / 120 Output: Urine 200 / 200 Other: # Voids 2 Date of Last Bowel Movement 07/09/18 07/09/18 Narrative: Clear lungs bilaterally, minimally labored breathing Results Procedures completed during hospitalization: Echo 07/10/2018 Technically difficult study with limited echocardiographic window visualization. Mild concentric left ventricular hypertrophy. Normal left ventricular size. The left ventricular systolic function is normal with an estimated ejection fraction in the range of 60-65% [id number] mitral valve regurgitation. There is mild tricuspid valve regurgitation. The estimated pulmonary arterial pressure is 32 mmHg. 07/11/2019 Bronchoscopy. Labs on day of discharge: Preliminary micro results at discharge 07/11/18 08:49 Bronchial Culture - Preliminary Bronchial - Right Lower Lobe Moderate growth normal respiratory checo at 24 hours 07/11/18 08:49 Bronchial Culture - Preliminary Bronchial - Left Upper Lobe Moderate growth normal respiratory checo at 24 hours 07/09/18 04:10 Aerobic Blood Culture - Preliminary Blood - Peripheral No growth in 3 days Anaerobic Blood Culture - Preliminary No growth in 3 days 07/09/18 04:00 Aerobic Blood Culture - Preliminary Blood - Peripheral No growth in 3 days Anaerobic Blood Culture - Preliminary No growth in 3 days - Impressions ITS Impressions Chest CTA 07/09/18 04:33 CONCLUSION: 1. No pulmonary embolus. 2. Focal consolidation left upper lung. This is nonspecific. It may represent an area of pneumonia. An underlying mass cannot be excluded. It be recommended that patient be treated and a follow-up CT examination be obtained to demonstrate this completely resolves. This does not completely resolve, further evaluate for underlying neoplasm could be performed. 3. Nonspecific prominent lymph nodes in the mediastinum. 4. Small focal density in the posterior lateral left lower lung. This area can also be followed. 5. Mild hiatal hernia. Chest X-Ray 07/11/18 09:02 CONCLUSION: Minimal basilar atelectasis. No significant effusion. Discharge Plan - Discharge Disposition Patient Disposition: 01 Discharge Home - Discharge Condition Condition: Stable - Discharge Order Discharge Orders: Discharge Order (Routine); Ordered 07/12/18 Ordered By: Aguila Crouch - Physicians Team Primary Care Provider: Primary Care Yesenia Bower Attending Provider: Aguila Crouch Other Providers: Mela Chen MD
[2018-07-12 12:59] VITALS: BP 136/86; TEMP 97.3; O2SAT 95
[2018-07-12 16:56] VITALS: PULSE 77; RESP 18
[2018-07-12] MEDS ORDERED: MethylPREDNISolone Sod Succinate Inj 40 MG/ML Vial IV.PUSH SCH (21:00)
== END 2018-07-12 18:33 | disposition home or self-care (01) ==
LOC: NEPE 03:48 → NEDA 07:01 → H7ONC 15:08 → N04 07-11 14:03
PROVIDERS: ADMIT Hospitalist; ATTEND Hospitalist